=== PATIENT | male | born 1960 | race Caucasian/White ===

== ENCOUNTER → 2017-09-01 08:28 | Outpatient (CLI) | payer OTHER, SELFPAY ==
[2017-09-01 12:59] LABS: Absolute Lymphocyte Count 1.58 X10^3/ul (0.83-4.51); Absolute Neutrophil Count 3.7 X10^3/uL (2.0-7.7); Basophil# 0.04 X10^3/uL; Basophil% 0.7 % (0-1); Eosinophil# 0.25 X10^3/uL; Eosinophils% 4.1 % (0-5); Hematocrit 47.9 % (40-54); Hemoglobin 16.6 g/dl (13.0-16.5); Lymphocyte # 1.58 X10^3/ul (4.0); Lymphocyte % 25.8 % (19-41); Mean Corp Hgb Conc 34.7 g/gl (32-36); Mean Corpuscular Hgb 30.5 pg (27.0-32.0); Mean Corpuscular Volume 88.1 fL (80-94); Mean Platelet Vol. 9.7 fl (6.2-12.0); Monocyte# 0.58 X10^3/uL; Monocyte% 9.5 % (0-10); Neutrophil # 3.65 X10^3/uL (2.7-7.7); Neutrophil % 59.4 % (47-70); Platelet Count 207 K/mm3 (150-450); RBC Distribution Width CV 13.1 % (11.6-14.6); RBC Distribution Width SD 42.4 fl (35.1-43.9); Red Blood Count 5.44 M/mm3 (4.6-6.2); White Blood Count 6.1 K/mm3 (4.4-11.0)
[2017-09-01 13:05] LABS: POSITIVE COUNT NO; POSITIVE DIFFERENTIAL NO; POSITIVE MORPHOLOGY NO
[2017-09-01 13:15] LABS: Anion Gap 8 (5-15); BUN 28 mg/dL (7-18); BUN/Creat Ratio 23.3 RATIO (10-20); Calcium,Total 9.1 mg/dL (8.5-10.1); Chloride 107 mmol/L (98-107); EST Glomerular Filtration Rate 66 mL/min (>60); Est Glom Filt Rate - Afr Amer 80 mL/min (>60); Glucose 106 mg/dL (74-106); Potassium 4.2 mmol/L (3.5-5.1); Sodium Level 144 mmol/L (136-145); Thyroid Stim Hormone (TSH) 1.89 uIU/mL (0.358-3.74)
== END ==
PROVIDERS: Visit Provider Family Medicine
DX: I10 Essential (primary) hypertension (principal); R73.01 Impaired fasting glucose
CPT/HCPCS: 36415; 80048; 84443; 85025

== ENCOUNTER 2018-05-16 12:20 | Observation (INO) | payer OTHER, SELFPAY ==
[2018-05-16] VITALS (10 sets, daily range): BP systolic 146–193; BP diastolic 90–113; PULSE 64–76; RESP 13–20; TEMP 36.6–37.3; O2SAT 95–98; BMI 35.6; BMI 35.2
--- NOTE | 2018-05-16 12:42 | EKG12_ITS ---
Test Reason : HTN Blood Pressure : / mmHG Vent. Rate : 067 BPM Atrial Rate : 067 BPM P-R Int : 176 ms QRS Dur : 092 ms QT Int : 412 ms P-R-T Axes : 042 014 008 degrees QTc Int : 435 ms Normal sinus rhythm Possible Left atrial enlargement Borderline ECG Confirmed by DIONNE CHAN, KELLY ([id number]), supervising film or videotape editor NA JOHNSON ([id number]) on 05/21/2018 4:27:14 PM Referred By: CAROLE Confirmed By:KELLY TRUONG MD
--- NOTE | 2018-05-16 12:42 | RAD_ITS ---
STUDY: X-RAY CHEST REASON FOR EXAM: Male, 58 years old. Hypertension. TECHNIQUE: Single AP portable view of the chest. COMPARISON: Comparison is made with prior study dated October 14, 2012. FINDINGS: EKG electrodes are seen. The lungs are clear and expanded. There is no demonstrated pleural abnormality. There is borderline cardiomegaly. Normal mediastinum and loraine. Normal visualized pulmonary arteries. Normal visualized aortic arch and descending thoracic aorta. Normal visualized thoracic spine. Normal visualized ribs, clavicles, and shoulders. There is no demonstrated abnormality of the visualized soft tissue structures of the upper abdomen. RAD/Chest 1 View (Portable) IMPRESSION: Borderline cardiomegaly. Electronically Signed: Dmitriy Perkins, at 13:09 EDT , Service support ,
--- NOTE | 2018-05-16 12:43 | ED.VIS.GEN ---
History of Present Illness Chief Complaint: Hypertension Detail of Chief Complaint: Exertional dyspnea and chest tightness Informant: Patient Onset: Weeks - Elevated blood pressure reading to Dr. Cordoba's office 2 weeks ago and exertional dyspnea and chest discomfort times 6 weeks Context: Onset with activity Timing: Intermittent Quality: Central chest tightness Current Severity: Presently no symptoms Maximum Severity: Moderate Worsened by: Walking up 1-2 flights of steps Relieved by: Rest for 1 minute Associated Symptoms: None Narrative: Patient is a 4-year-old gentleman with history of hypertension for many years who presents because of elevated blood pressure. During questioning he admits to shortness of breath and tightness in his chest going up greater than 1 flight of steps at work. He also developed shortness of breath occasionally at home going up 1 flight of steps. Presently he is asymptomatic. He denies any neurologic, ocular, auditory symptoms. He denies trouble with speech or swallowing. He denied problems with balance. He is scheduled for cataract surgery tomorrow by Dr. Henriquez Prior similar symptoms: No Recent Illness/Hospitalization: No - Past Medical History (1) History of hypertension Status: Acute Past Medical History - Allergies and Home Meds Allergies/Adverse Reactions: Allergies No Known Allergies Allergy (Verified 05/16/18 12:21) Primary Care Physician: Ricardo West MD [Primary Care Provider] - Prior records reviewed: Yes Surgical History: noncontributory Lives: Spouse/ Significant Other Smoking Status: Never smoker Alcohol: None Review of Systems General: Denies: Chills, Fever, Sweats Eyes: Denies: Visual changes - bilaterally, Blurred Vision - bilaterally, Diplopia ENT: Denies: Rhinorrhea, Sore throat Cardiovascular: Reports: Chest pain Respiratory: Reports: Dyspnea, Dyspnea on exertion Gastrointestinal: Denies: Abdominal pain, Nausea, Vomiting, Diarrhea, Melena, Hematochezia Genitourinary: Denies: Dysuria, Hematuria, Frequency Musculoskeletal: Denies: Myalgias, Arthralgias, Neck pain, Back pain, Swelling, Extremity Pain Skin: Denies: Rash, Wounds Neurological: Denies: Headache, Weakness, Parasthesia, Numbness Hematologic: Denies: Easy bruising, Easy bleeding Allergy: Denies: Uticaria Physical Exam Vital Signs/Narrative: Vital Signs Temp Pulse Resp BP Pulse Ox 05/16/18 12:42 73 20 H 192/103 H 97 05/16/18 12:21 99.2 F H 76 14 193/113 H 98 General: Well nourished, Well developed, No Acute Distress Head: Normocephalic, Atraumatic Eyes: Perrl, EOMI ENT: Moist mucous membranes, No rhinorrhea Neck: Supple, Nontender Cardiovascular: Regular rate, Regular rhythm, No murmurs, Normal S1, Normal S2 Respiratory: No distress, CTA bilaterally, Chest nontender Abdomen: Soft, Nontender, Nondistended, Normal bowel sounds Back: Nontender, Normal Inspection. Negative for: CVA tenderness Extremities: Nontender, No edema Skin: Normal color, No rash Neurological: Alert, Oriented x3, Cranial nerves II-XII grossly intact, Normal Strength, Normal Sensation, Normal DTR, Normal Gait Psychological: Normal affect, Normal Mood Diagnostic/Tx/Re-eval Impressions Chest X-Ray 05/16/18 12:42 IMPRESSION: Borderline cardiomegaly. Electronically Signed: Dmitriy Maddie, at 13:09 EDT , Service support , 05/16/18 12:42 Chest 1 View (Portable) [RAD] Stat Laboratory Results 05/16/18 05/16/18 13:00 13:00 WBC 5.7 RBC 5.77 Hgb 17.4 H Hct 50.0 MCV 86.7 MCH 30.2 MCHC 34.8 RDW 12.9 RDW Differential 40.9 Plt Count 184 MPV 9.3 Immature Gran % (Auto) 0.200 Neut % (Auto) 66.4 Lymph % (Auto) 23.4 [place] % (Auto) 7.2 Eos % (Auto) 2.3 Baso % (Auto) 0.5 Absolute Neuts (auto) 3.8 Absolute Lymphs (auto) 1.34 Total Counted Not Reportable Sodium 139 Potassium 3.6 Chloride 105 Carbon Dioxide 28.0 Anion Gap 6 BUN 19 H Creatinine 1.15 Estim Creat Clear Calc 79.42 Est GFR (MDRD) Af Amer 83 Est GFR (MDRD) Non-Af 69 BUN/Creatinine Ratio 16.5 Glucose 93 Calcium 9.2 Troponin I < 0.015 - EKG Initial EKG Interpretation: Sinus Rhythm - Ventricular rate is 67. MI interval, is normal. QRS duration is 92 ms. QT interval and axis are normal. There are no ischemic changes noted., No Acute Injury Pattern - Medical Decision Making Patient's blood pressure is markedly elevated. He reports elevated blood pressure readings when he goes to the doctor's office. He brought in a piece paper with multiple blood pressure readings which are at best mildly elevated. With history of dyspnea on exertion and tightness with exertion alleviated with rest cardiac workup was undertaken. Patient did receive aspirin. Dr. Cordoba his supervisor fryer farm was contacted to inform him of patient's presentation since he is scheduled for surgery tomorrow. After completion of workup will contact Dr. Day for he was on for cardiology because of concern for exertional angina. Blood work is unremarkable including troponin. With history of exertional angina and shortness of breath that is alleviated with 1-2 minutes of rest continuing education director was paged, Dr. Jayesh Sinclair and hospitalist for admission and to determine if the catheterization is the appropriate test versus stress test. ED Disposition - Plan for ED Patient: Disposition: Acute Care [facility] Diagnosis: Exertional chest pain, Exertional dyspnea, Hypertension Referrals: Ricardo West MD [Primary Care Provider] -
--- NOTE | 2018-05-16 12:47 | ED.DCSUM_ITS ---
History of Present Illness Chief Complaint: Hypertension Detail of Chief Complaint: Exertional dyspnea and chest tightness Informant: Patient Onset: Weeks - Elevated blood pressure reading to Dr. Cordoba's office 2 weeks ago and exertional dyspnea and chest discomfort times 6 weeks Context: Onset with activity Timing: Intermittent Quality: Central chest tightness Current Severity: Presently no symptoms Maximum Severity: Moderate Worsened by: Walking up 1-2 flights of steps Relieved by: Rest for 1 minute Associated Symptoms: None Narrative: Patient is a 4-year-old gentleman with history of hypertension for many years who presents because of elevated blood pressure. During questioning he admits to shortness of breath and tightness in his chest going up greater than 1 flight of steps at work. He also developed shortness of breath occasionally at home going up 1 flight of steps. Presently he is asymptomatic. He denies any neurologic, ocular, auditory symptoms. He denies trouble with speech or swallowing. He denied problems with balance. He is scheduled for cataract surgery tomorrow by Dr. Henriquez Prior similar symptoms: No Recent Illness/Hospitalization: No - Past Medical History (1) History of hypertension Status: Acute Past Medical History - Allergies and Home Meds Allergies/Adverse Reactions: Allergies No Known Allergies Allergy (Verified 05/16/18 12:21) Primary Care Physician: Ricardo West MD [Primary Care Provider] - Prior records reviewed: Yes Surgical History: noncontributory Lives: Spouse/ Significant Other Smoking Status: Never smoker Alcohol: None Review of Systems General: Denies: Chills, Fever, Sweats Eyes: Denies: Visual changes - bilaterally, Blurred Vision - bilaterally, Diplopia ENT: Denies: Rhinorrhea, Sore throat Cardiovascular: Reports: Chest pain Respiratory: Reports: Dyspnea, Dyspnea on exertion Gastrointestinal: Denies: Abdominal pain, Nausea, Vomiting, Diarrhea, Melena, Hematochezia Genitourinary: Denies: Dysuria, Hematuria, Frequency Musculoskeletal: Denies: Myalgias, Arthralgias, Neck pain, Back pain, Swelling, Extremity Pain Skin: Denies: Rash, Wounds Neurological: Denies: Headache, Weakness, Parasthesia, Numbness Hematologic: Denies: Easy bruising, Easy bleeding Allergy: Denies: Uticaria Physical Exam Vital Signs/Narrative: Vital Signs Temp Pulse Resp BP Pulse Ox 05/16/18 12:42 73 20 H 192/103 H 97 05/16/18 12:21 99.2 F H 76 14 193/113 H 98 General: Well nourished, Well developed, No Acute Distress Head: Normocephalic, Atraumatic Eyes: Perrl, EOMI ENT: Moist mucous membranes, No rhinorrhea Neck: Supple, Nontender Cardiovascular: Regular rate, Regular rhythm, No murmurs, Normal S1, Normal S2 Respiratory: No distress, CTA bilaterally, Chest nontender Abdomen: Soft, Nontender, Nondistended, Normal bowel sounds Back: Nontender, Normal Inspection. Negative for: CVA tenderness Extremities: Nontender, No edema Skin: Normal color, No rash Neurological: Alert, Oriented x3, Cranial nerves II-XII grossly intact, Normal Strength, Normal Sensation, Normal DTR, Normal Gait Psychological: Normal affect, Normal Mood Diagnostic/Tx/Re-eval Impressions Chest X-Ray 05/16/18 12:42 IMPRESSION: Borderline cardiomegaly. Electronically Signed: Dmitriy Maddie, at 13:09 EDT , Service support , 05/16/18 12:42 Chest 1 View (Portable) [RAD] Stat Laboratory Results 05/16/18 05/16/18 13:00 13:00 WBC 5.7 RBC 5.77 Hgb 17.4 H Hct 50.0 MCV 86.7 MCH 30.2 MCHC 34.8 RDW 12.9 RDW Differential 40.9 Plt Count 184 MPV 9.3 Immature Gran % (Auto) 0.200 Neut % (Auto) 66.4 Lymph % (Auto) 23.4 [place] % (Auto) 7.2 Eos % (Auto) 2.3 Baso % (Auto) 0.5 Absolute Neuts (auto) 3.8 Absolute Lymphs (auto) 1.34 Total Counted Not Reportable Sodium 139 Potassium 3.6 Chloride 105 Carbon Dioxide 28.0 Anion Gap 6 BUN 19 H Creatinine 1.15 Estim Creat Clear Calc 79.42 Est GFR (MDRD) Af Amer 83 Est GFR (MDRD) Non-Af 69 BUN/Creatinine Ratio 16.5 Glucose 93 Calcium 9.2 Troponin I < 0.015 - EKG Initial EKG Interpretation: Sinus Rhythm - Ventricular rate is 67. NH interval, is normal. QRS duration is 92 ms. QT interval and axis are normal. There are no ischemic changes noted., No Acute Injury Pattern - Medical Decision Making Patient's blood pressure is markedly elevated. He reports elevated blood pressure readings when he goes to the doctor's office. He brought in a piece paper with multiple blood pressure readings which are at best mildly elevated. With history of dyspnea on exertion and tightness with exertion alleviated with rest cardiac workup was undertaken. Patient did receive aspirin. Dr. Cordoba his wire welder was contacted to inform him of patient's presentation since he is scheduled for surgery tomorrow. After completion of workup will contact Dr. Day for he was on for cardiology because of concern for exertional angina. Blood work is unremarkable including troponin. With history of exertional angina and shortness of breath that is alleviated with 1-2 minutes of rest freight car builder was paged, Dr. Jayesh Sinclair and hospitalist for admission and to determine if the catheterization is the appropriate test versus stress test. ED Disposition - Plan for ED Patient: Disposition: Acute Care Hospital [facility] Diagnosis: Exertional chest pain, Exertional dyspnea, Hypertension Referrals: Ricardo West MD [Primary Care Provider] -
[2018-05-16] MEDS: Aspirin 81 MG TAB.CHEW 324 MG PO (12:53)
[2018-05-16 13:24] LABS: Absolute Lymphocyte Count 1.34 X10^3/ul (0.83-4.51); Absolute Neutrophil Count 3.8 X10^3/uL (2.0-7.7); Basophil# 0.03 X10^3/uL; Basophil% 0.5 % (0-1); Eosinophil# 0.13 X10^3/uL; Eosinophils% 2.3 % (0-5); Hemoglobin 17.4 g/dl (13.0-16.5); Lymphocyte # 1.34 X10^3/ul (4.0); Lymphocyte % 23.4 % (19-41); Mean Corp Hgb Conc 34.8 g/gl (32-36); Mean Corpuscular Hgb 30.2 pg (27.0-32.0); Mean Corpuscular Volume 86.7 fL (80-94); Mean Platelet Vol. 9.3 fl (6.2-12.0); Monocyte# 0.41 X10^3/uL; Monocyte% 7.2 % (0-10); Neutrophil # 3.81 X10^3/uL (2.7-7.7); Neutrophil % 66.4 % (47-70); POSITIVE COUNT NO; POSITIVE DIFFERENTIAL NO; POSITIVE MORPHOLOGY NO; Platelet Count 184 K/mm3 (150-450); RBC Distribution Width CV 12.9 % (11.6-14.6); RBC Distribution Width SD 40.9 fl (35.1-43.9); Red Blood Count 5.77 M/mm3 (4.6-6.2); White Blood Count 5.7 K/mm3 (4.4-11.0)
[2018-05-16 13:30] LABS: Anion Gap 6 (5-15); BUN 19 mg/dL (7-18); BUN/Creat Ratio 16.5 RATIO (10-20); Calcium,Total 9.2 mg/dL (8.5-10.1); Chloride 105 mmol/L (98-107); Creatinine, Serum 1.15 mg/dL (0.70-1.30); EST Glomerular Filtration Rate 69 mL/min (>60); Est Glom Filt Rate - Afr Amer 83 mL/min (>60); Estimated Creatinine Clearance 79.42 ml/min; Glucose 93 mg/dL (74-106); Potassium 3.6 mmol/L (3.5-5.1); Sodium Level 139 mmol/L (136-145)
--- NOTE | 2018-05-16 14:53 | EKG12_ITS ---
Test Reason : Blood Pressure : / mmHG Vent. Rate : 061 BPM Atrial Rate : 061 BPM P-R Int : 180 ms QRS Dur : 096 ms QT Int : 432 ms P-R-T Axes : 035 017 008 degrees QTc Int : 434 ms Normal sinus rhythm Normal ECG When compared with ECG of 30-OCT-2012 13:51, No significant change was found Confirmed by DIONNE CHAN, KELLY ([id number]), dictionary editor NA JOHNSON ([id number]) on 05/21/2018 5:35:51 PM Referred By: CHUNG Confirmed By:KELLY TRUONG MD
--- NOTE | 2018-05-16 16:04 | HP.PCM_ITS ---
Problem List (1) Chest pain Status: Acute Qualifiers: Chest pain type: precordial pain Qualified Code(s): R07.2 - Precordial pain History of Present Illness Date of Admission: 05/16/18 Chief Complaint: chest tightness The patient is a 58 year old M who was seen in the ER at [facility] with complaints of intermittent chest tightness over the last 2-3 weeks. Discomfort is not related to activity and lasts for only a matter of minutes and goes away. Does not radiate to neck, back, or arms. he complains of some shortness of breath at times with the chest tightness. Work up in the ER included negative troponin and a chest x-ray which was negative for acute pathology. EKG shows no evidence of ischemic changes Patient will be placed into observation status for chest pain, enzymes will be cycled, and patient will have an echo stress performed if enzymes are negative. Blood pressure will be monitored. Past Medical History Past Medical History (Chronic Problems): Chronic Problems Hypertension (Chronic) Allergies No Known Allergies Allergy (Verified 05/16/18 12:21) Home Medications: Ambulatory Orders Medication Instructions Recorded Hydrochlorothiazide [Hctz] 25 mg PO DAILY 05/16/18 Surgical History: total knee arthroplasty, tonsillectomy, - - shoulder replacement Psychiatric History: No pertinent psych hx Lives: Spouse/ Significant Other Smoking Status: Never smoker Tobacco Use: Non-smoker Alcohol: None Drugs: None - *Family History Maternal History Items: Hypertension Paternal History Items: Hypertension Review of Systems Constitutional: Denies: Anorexia, Chills, Fever, Night Sweats, Malaise, Weakness, Weight Change, Fatigue Eyes: Denies: Blurred vision, Cataracts, Conjunctivae Inflammation, Double vision, Drainage HEENT: Denies: Difficulty Swallowing, Dysphasia, Ear Pain, Eye Pain, Hearing Changes, Nasal bleeding, Nasal Congestion Cardiovascular: Reports: Chest Pain, Chest Tightness. Denies: Claudication, Chest Pressure, Edema, Heaviness, Orthopnea, Palpitations Respiratory: Reports: Shortness of Breath, Shortness of breath at rest. Denies: Cough, Hemoptysis, Pleuritic Pain, Shortness of breath upon exertion, Sputum production, Wheezing Gastrointestinal: Denies: Abdominal Pain, Constipation, Diarrhea, Hematemesis, Hematochezia, Nausea, Melena, Vomiting Genitourinary: Denies: Dysuria, Frequency, Hematuria, Hesitancy, Nocturia, Retention, Urgency Musculoskeletal: Denies: Back Pain, Foot Pain, Hand Pain, Joint Pain, Joint stiffness, Joint swelling, Joint Tenderness, Leg Pain Skin: Denies: Dryness, Jaundice, Pruritis, Rash Neurological: Denies: Blurred vision, Double vision, Change in Speech, Slurred speech, Difficulty swallowing, Focal weakness, Headaches, Incoordination, Numbness, Tingling Psychiatric: Denies: Anxiety, Depression, Homicidal Ideations, Suicidal Ideations Endocrine: Denies: Change in Body Habitus, Heat/ Cold Intolerance, Polydipsia, Polyuria Hematologic/ Lymphatic: Denies: Adenopathy, Anemia, Easy Bruising, Easy Bleeding, Petechiae, Purpura VTE Information - Inpt Only VTE Present on Admission: No VTE Mechan Device Prophylaxis: None VTE Pharm Prophylaxis ordered?: No Reason prophylaxis not ordered:: Treatment Not Indicated Patient Problems: Active and Suspected Problems Exertional chest pain (Acute) Exertional dyspnea (Acute) Chest pain (Acute) - Physical Exam General: Alert, Oriented x3, Cooperative HEENT: Atraumatic, PERRLA, EOMI, Normocephalic Oral: Moist Mucosa Neck: Supple, No JVD, Negative Carotid Bruits, No Nuchal Rigidity, Trachea Midline, Thyroid Normal Size and Texture Lungs: Clear to auscultation, Normal air movement, No rhonchi, No wheeze, No rales Cardiovascular: Regular rate, Regular Rhythm, Normal S1, Normal S2, No murmurs, No Ectopic Activity, PMI Normal, No rub noted, No Gallop Abdomen: Bowel Sounds Present, Soft, Non Tender, Non-Distended Extremities: No clubbing, No cyanosis, No edema, Capillary Refill Less than 3 Seconds Skin: No rashes, No breakdown Musculoskeletal: No Tenderness to Palpation of Joints or Extremities Neurological: Cranial nerves II-XII grossly intact, Neuro grossly intact, Sensory exam intact to light touch and pain, Coordination normal Psych/Mental Status: Normal Affect, Appropriate, Alert and oriented to time, place, person, mood and affect Vital Signs Temp Pulse Resp BP Pulse Ox 98.6 F 65 16 146/90 H 98 05/16/18 15:10 05/16/18 15:10 05/16/18 15:10 05/16/18 15:10 05/16/18 15:10 Oxygen Delivery Method Room Air Weight: 124.5 kg Body Mass Index (BMI) 35.2 Laboratory Tests Past 24 Hrs 05/16/18 05/16/18 13:00 13:00 WBC 5.7 RBC 5.77 Hgb 17.4 H Hct 50.0 MCV 86.7 MCH 30.2 MCHC 34.8 RDW 12.9 RDW Differential 40.9 Plt Count 184 MPV 9.3 Immature Gran % (Auto) 0.200 Neut % (Auto) 66.4 Lymph % (Auto) 23.4 [place] % (Auto) 7.2 Eos % (Auto) 2.3 Baso % (Auto) 0.5 Absolute Neuts (auto) 3.8 Absolute Lymphs (auto) 1.34 Total Counted Not Reportable Sodium 139 Potassium 3.6 Chloride 105 Carbon Dioxide 28.0 Anion Gap 6 BUN 19 H Creatinine 1.15 Estim Creat Clear Calc 79.42 Est GFR (MDRD) Af Amer 83 Est GFR (MDRD) Non-Af 69 BUN/Creatinine Ratio 16.5 Glucose 93 Calcium 9.2 Troponin I < 0.015 Assessment/Plan All Active Problems History of hypertension (Acute) Exertional chest pain (Acute) Exertional dyspnea (Acute) Chest pain (Acute) #1 chest pain-etiology unknown-patient will be placed into observational status, enzymes will be cycled, if enzymes remain negative-patient will have echo stress performed tomorrow. Patient's only risk factor for heart disease includes hypertension and male sex #2 hypertension-patient states that his blood pressure is lower at home than when he goes to a physician's office, he showed me blood pressure readings from his home and he states that he took his blood pressure in the emergency room here with his home cuff and it correlated with the emergency room reading. For now, I will not increase the patient's blood pressure medication unless it remains elevated while he is in the hospital here. Code Visit OBSV E&M: 23008 Initial observation care L3
[2018-05-16] MEDS: Pantoprazole Sodium 20 MG Tablet PO (22:59)
[2018-05-16] MEDS: Lisinopril 5 MG Tablet PO (23:00)
[2018-05-17 02:59] VITALS: PULSE 53
[2018-05-17 03:00] VITALS: BP 144/94; PULSE 56; RESP 18; TEMP 36.5; O2SAT 97
[2018-05-17 05:36] LABS: Absolute Lymphocyte Count 1.21 X10^3/ul (0.83-4.51); Absolute Neutrophil Count 3.4 X10^3/uL (2.0-7.7); Basophil# 0.02 X10^3/uL; Basophil% 0.4 % (0-1); Eosinophil# 0.21 X10^3/uL; Eosinophils% 3.8 % (0-5); Hematocrit 48.3 % (40-54); Hemoglobin 16.8 g/dl (13.0-16.5); Lymphocyte # 1.21 X10^3/ul (4.0); Lymphocyte % 22.2 % (19-41); Mean Corp Hgb Conc 34.8 g/gl (32-36); Mean Corpuscular Hgb 29.8 pg (27.0-32.0); Mean Corpuscular Volume 85.6 fL (80-94); Mean Platelet Vol. 9.3 fl (6.2-12.0); Monocyte# 0.63 X10^3/uL; Monocyte% 11.5 % (0-10); Neutrophil # 3.38 X10^3/uL (2.7-7.7); Neutrophil % 61.9 % (47-70); Platelet Count 202 K/mm3 (150-450); RBC Distribution Width SD 40.6 fl (35.1-43.9); Red Blood Count 5.64 M/mm3 (4.6-6.2); White Blood Count 5.5 K/mm3 (4.4-11.0)
[2018-05-17 05:38] LABS: POSITIVE COUNT NO; POSITIVE DIFFERENTIAL NO; POSITIVE MORPHOLOGY NO
[2018-05-17 05:46] LABS: Anion Gap 8 (5-15); BUN 18 mg/dL (7-18); BUN/Creat Ratio 16.7 RATIO (10-20); Calcium,Total 8.7 mg/dL (8.5-10.1); Chloride 105 mmol/L (98-107); Creatinine, Serum 1.08 mg/dL (0.70-1.30); EST Glomerular Filtration Rate 74 mL/min (>60); Est Glom Filt Rate - Afr Amer 90 mL/min (>60); Estimated Creatinine Clearance 84.57 ml/min; Glucose 115 mg/dL (74-106); Potassium 3.8 mmol/L (3.5-5.1); Sodium Level 140 mmol/L (136-145)
[2018-05-17 05:49] LABS: International Normalized Ratio 1.1; Prothrombin Time (Protime)PT. 13.8 SECONDS (11.7-14.9)
[2018-05-17 05:50] LABS: Partial Thromboplast Time 33.1 Seconds (24.1-36.2)
--- NOTE | 2018-05-17 05:55 | EKG12_ITS ---
Test Reason : AM EKG Blood Pressure : / mmHG Vent. Rate : 062 BPM Atrial Rate : 062 BPM P-R Int : 168 ms QRS Dur : 092 ms QT Int : 430 ms P-R-T Axes : 053 023 023 degrees QTc Int : 436 ms Normal sinus rhythm Normal ECG When compared with ECG of 16-MAY-2018 14:53, MANUAL COMPARISON REQUIRED, DATA IS UNCONFIRMED Confirmed by DIONNE CHAN, KELLY ([id number]), editor city NA JOHNSON ([id number]) on 05/21/2018 5:14:10 PM Referred By: YENNY Confirmed By:KELLY TRUONG MD
[2018-05-17 05:56] VITALS: BP 141/92; PULSE 61; RESP 18; TEMP 36.5; O2SAT 96
[2018-05-17 07:06] VITALS: PULSE 62
--- NOTE | 2018-05-17 08:00 | STEWCON_ITS ---
Reason For Study: CHEST PAIN Stress Results Protocol: Bernardo Protocol WITH DEFINITY Maximum Predicted HR: 160 bpm Target HR: 136 bpm % Maximum Predicted HR: 88 % DurationHeart Rate Stage (mm:ss) (bpm) BP Comment BASELINE 60 152/98 2CC DEFINITY STAGE 1 3:00 110 222/110 STAGE 2 3:00 133 228/1002 CC DEFINITY STAGE 3 0:30 141 / RECOVERY 90 150/1001CC DEFINITY Stress Duration: 6:30 mm:ss Maximum Stress HR: 141 bpm METS: 8 Baseline Echocardiogram Findings Stress Echo Wall motion Data Resting WM Intermediate WM Stress WM Resting Wall Motion Wall Motion Stress All segments Normal. All segments Hyperkinetic. Ejection Fraction 65 %. Ejection Fraction 75 %. Stress Results Heart rate response: appropriate Blood pressure response: resting hypertension - exaggerated response Arrhythmias: none Functional capacity: average Stopped secondary to: dyspnea. EKG Data The baseline ECG displays normal sinus rhythm. Peak exercise ECG: No obvious ECG Changes. Symptoms with Stress No c/o of chest discomfort during exercise or recovery. Interpretation Summary Negative (adequate) Stress Echocardiogram The study was technically difficult. Contrast injection was performed. Ordering Physician: Vito Dominguez Referring Physician: Vito Dominguez DO Performed By: Nate Sierra RCS
[2018-05-17 08:59] VITALS: BP 155/99; PULSE 70; RESP 18; TEMP 36.6; O2SAT 97
[2018-05-17] MEDS: Pantoprazole Sodium 20 MG Tablet PO (09:03)
[2018-05-17] MEDS: hydroCHLOROthiazide 25 MG Tablet PO (09:03)
--- NOTE | 2018-05-17 10:44 | DCINST_ITS ---
- Discharge Diagnoses Current Active Problems: Current Active and Chronic Problems Exertional chest pain (Acute) Exertional dyspnea (Acute) Hypertension (Chronic) Chest pain (Acute) You will use the following diet at home:: No restrictions Your food should be the consistency of: Regular Your liquids should be the consistency of: Regular/Thin Discharge Activity: Return to Normal Activity Weight Bearing Status: Full weight bearing Allergies/Adverse Reactions: Allergies No Known Allergies Allergy (Verified 05/16/18 12:21) Medications to take at Discharge Hydrochlorothiazide [Hctz] 25 mg PO DAILY 05/16/18 Metoprolol Tartrate 25 mg PO BID #60 tablet 05/17/18 The following prescriptions were given: Metoprolol Tartrate 25 mg PO BID #60 tablet Primary Care Physician: Ricardo West MD [Primary Care Provider] - Please follow up with your Primary Care Physician in: next week Test Results: Test results from this visit will be discussed in further detail at your follow- up appointment, if applicable.
--- NOTE | 2018-05-17 11:53 | PCM.DC.SUM ---
Discharge Date and Diagnosis Date of Admission: 05/16/18 Date of Discharge: 05/17/18 - Primary Discharge Diagnosis Active and Suspected Problems 1. Noncardiac chest pain 2. Hypertension 3. GERD - Secondary Discharge Diagnosis Chronic Problems Hypertension (Chronic) Hospital Course and Treatment Imaging Results: Diagnostic Data Chest X-Ray 05/16/18 12:42 IMPRESSION: Borderline cardiomegaly. Electronically Signed: Dmitriy Perkins, at 13:09 EDT , Service support , Operations: None Procedures: - - Stress echo. Summary of Care Provided: The patient is a 58 year old M admitted 05/16/2018 due to chest tightness. 1. Noncardiac chest pain, ACS ruled out-chest x-ray on admission without acute process. EKG with no ST-T changes. Troponin negative. Patient underwent stress echo which was negative for ischemia. Patient reports significant anxiety over the past 1-2 weeks due to planned eye surgery which was scheduled for today. He feels this may have been contributing to his presenting symptoms. Follow-up with primary care physician in 1 week. 2. Hypertension, elevated on admission-patient reports blood pressure is higher at the doctor's office than when he is at home. He records blood pressure findings at home and readings are typically 120-130 systolically. He will continue home HCTZ regimen. He was additionally started on metoprolol 25 mg twice daily. 3. GERD-patient reports indigestion/reflux following meals. Initiated on PPI. Patient seen and examined prior to discharge. Physical assessment as noted below. Patient is stable for discharge with follow up recommendations as noted above. This patient was seen by SELMA Guzmán under the supervision of Dr. Dominguez. - Physical Exam General: Alert, Oriented x3, Cooperative HEENT: Atraumatic, PERRLA, EOMI, Normocephalic Neck: Supple, No JVD, Negative Carotid Bruits Lungs: Clear to auscultation, Normal air movement Cardiovascular: Regular rate, Regular Rhythm, Normal S1, Normal S2, No murmurs Abdomen: Bowel Sounds Present, Soft, Non Tender, Non-Distended, Obese Extremities: No clubbing, No cyanosis, No edema, Capillary Refill Less than 3 Seconds Skin: No rashes, No breakdown Musculoskeletal: No Tenderness to Palpation of Joints or Extremities Neurological: Cranial nerves II-XII grossly intact, Neuro grossly intact Psych/Mental Status: Normal Affect, Appropriate Vital Signs Temp Pulse Resp BP Pulse Ox 98 F 70 18 155/99 H 97 05/17/18 08:59 05/17/18 08:59 05/17/18 08:59 05/17/18 08:59 05/17/18 08:59 Oxygen Delivery Method Room Air Weight: 274 lb 7.608 oz Body Mass Index (BMI) 35.2 Intake and Output for Last 24 Hours 05/15/18 05/16/18 05/17/18 23:59 23:59 23:59 Intake Total 120 / 120 Balance 120 / 120 Laboratory Tests Past 24 Hrs 05/16/18 05/16/18 05/16/18 13:00 13:00 16:11 WBC 5.7 RBC 5.77 Hgb 17.4 H Hct 50.0 MCV 86.7 MCH 30.2 MCHC 34.8 RDW 12.9 RDW Differential 40.9 Plt Count 184 MPV 9.3 Immature Gran % (Auto) 0.200 Neut % (Auto) 66.4 Lymph % (Auto) 23.4 [place] % (Auto) 7.2 Eos % (Auto) 2.3 Baso % (Auto) 0.5 Absolute Neuts (auto) 3.8 Absolute Lymphs (auto) 1.34 Total Counted Not Reportable PT INR APTT Sodium 139 Potassium 3.6 Chloride 105 Carbon Dioxide 28.0 Anion Gap 6 BUN 19 H Creatinine 1.15 Estim Creat Clear Calc 79.42 Est GFR (MDRD) Af Amer 83 Est GFR (MDRD) Non-Af 69 BUN/Creatinine Ratio 16.5 Glucose 93 Calcium 9.2 Troponin I < 0.015 < 0.015 05/16/18 05/17/18 05/17/18 19:11 05:20 05:20 WBC 5.5 RBC 5.64 Hgb 16.8 H Hct 48.3 MCV 85.6 MCH 29.8 MCHC 34.8 RDW 13.0 RDW Differential 40.6 Plt Count 202 MPV 9.3 Immature Gran % (Auto) 0.200 Neut % (Auto) 61.9 Lymph % (Auto) 22.2 [place] % (Auto) 11.5 H Eos % (Auto) 3.8 Baso % (Auto) 0.4 Absolute Neuts (auto) 3.4 Absolute Lymphs (auto) 1.21 Total Counted Not Reportable PT 13.8 INR 1.1 APTT 33.1 Sodium Potassium Chloride Carbon Dioxide Anion Gap BUN Creatinine Estim Creat Clear Calc Est GFR (MDRD) Af Amer Est GFR (MDRD) Non-Af BUN/Creatinine Ratio Glucose Calcium Troponin I < 0.015 05/17/18 05:20 WBC RBC Hgb Hct MCV MCH MCHC RDW RDW Differential Plt Count MPV Immature Gran % (Auto) Neut % (Auto) Lymph % (Auto) [place] % (Auto) Eos % (Auto) Baso % (Auto) Absolute Neuts (auto) Absolute Lymphs (auto) Total Counted PT INR APTT Sodium 140 Potassium 3.8 Chloride 105 Carbon Dioxide 27.0 Anion Gap 8 BUN 18 Creatinine 1.08 Estim Creat Clear Calc 84.57 Est GFR (MDRD) Af Amer 90 Est GFR (MDRD) Non-Af 74 BUN/Creatinine Ratio 16.7 Glucose 115 H Calcium 8.7 Troponin I Discharge Diet: Low fat/ Low Cholesterol Discharge Activity: Return to Normal Activity Weight Bearing Status: Full weight bearing Home Medications: Medications to take at Discharge Hydrochlorothiazide [Hctz] 25 mg PO DAILY 05/16/18 Metoprolol Tartrate 25 mg PO BID #60 tablet 05/17/18 Following Prescrptions Were Given to Patient: Metoprolol Tartrate 25 mg PO BID #60 tablet Primary Care Physician: Ricardo West MD [Primary Care Provider] - Please follow up with your Primary Care Physician in: next week Disposition: Home Minutes spent on discharge:: 35 Patient Condition:: Stable Medical Necessity - Tobacco Use Smoking Status: Never smoker Tobacco Use: Non-smoker Meaningful Use Info Meaningful Use Diagnoses (Choose all that apply): None applicable
== END 2018-05-17 10:44 | disposition home or self-care (01) ==
LOC: ED 13:38 → PCU 14:27
PROVIDERS: Admitting Provider Internal Medicine; Emergency Provider Emergency Medicine; Family Provider Family Medicine; PCP Family Medicine; Visit Provider Internal Medicine
DX: E07.89 Other specified disorders of thyroid (principal); R06.09 Other forms of dyspnea; I10 Essential (primary) hypertension; Z79.899 Other long term (current) drug therapy; K21.9 Gastro-esophageal reflux disease without esophagitis
CPT/HCPCS: 36415; 71045; 80048; 84484; 85025; 85610; 85730; 93005; 93017; 93350; 99218; 99284; Q9957; A4216; C8928; G0378

== ENCOUNTER → 2021-11-19 | Outpatient (CLI) | payer OTHER, SELFPAY ==
[2021-11-19 12:32] LABS: Absolute Lymphocyte Count 1.25 X10^3/uL (0.83-4.51); Absolute Neutrophil Count 4.5 X10^3/uL (2.0-7.7); Basophil# 0.04 X10^3/uL; Basophil% 0.6 % (0-1); Eosinophil# 0.19 X10^3/uL; Eosinophils% 2.9 % (0-5); Hematocrit 50.9 % (40-54); Lymphocyte # 1.25 X10^3/ul (0.83-4.51); Lymphocyte % 18.9 % (19-41); Mean Corp Hgb Conc 33.4 g/dL (32-36); Mean Corpuscular Hgb 29.8 pg (27.0-32.0); Mean Corpuscular Volume 89.3 fL (80-94); Mean Platelet Vol. 9.6 fl (6.2-12.0); Monocyte# 0.58 X10^3/uL; Monocyte% 8.8 % (0-10); NRBC Flagged by Analyzer 0 % (0-5); Neutrophil % 68.2 % (47-70); Platelet Count 216 K/mm3 (150-450); RBC Distribution Width CV 12.8 % (11.6-14.6); RBC Distribution Width SD 41.6 fl (35.1-43.9); White Blood Count 6.6 K/mm3 (4.4-11.0)
[2021-11-19 12:49] LABS: Anion Gap 5 (5-15); BUN 29 mg/dL (7-18); BUN/Creat Ratio 24.8 RATIO (10-20); Calcium,Total 9.1 mg/dL (8.5-10.1); Chloride 104 mmol/L (98-107); Cholesterol 185 mg/dL (200); Creatinine, Serum 1.17 mg/dL (0.70-1.30); EST Glomerular Filtration Rate 67 mL/min (>60); Est Glom Filt Rate - Afr Amer 81 mL/min (>60); Glucose 136 mg/dL (74-106); High Density Lipoprotein 48 mg/dL; Potassium 4.4 mmol/L (3.5-5.1); Sodium Level 138 mmol/L (136-145); Triglycerides 109 mg/dL; Very Low Density Lipoprotein 22 mg/dL (5-40)
== END | disposition home or self-care (01) ==
PROVIDERS: PCP Family Medicine; Visit Provider Family Medicine
DX: I10 Essential (primary) hypertension (principal); R73.01 Impaired fasting glucose
CPT/HCPCS: 36415; 80048; 80061; 84443; 85025

== ENCOUNTER 2022-06-05 12:37 | Emergency (ER) | payer OTHER, SELFPAY ==
[2022-06-05 12:38] VITALS: BP 199/113; PULSE 61; RESP 16; TEMP 36.2; O2SAT 98; BMI 38.2
--- NOTE | 2022-06-05 12:48 | RAD_ITS ---
STUDY: X-RAY CHEST REASON FOR EXAM: Male, 62 years old. Substernal chest pain TECHNIQUE: 2 AP portable views COMPARISON: 05/16/2018 FINDINGS: EKG leads overlie the chest The lungs are clear and expanded. There is no demonstrated pleural abnormality. Normal size heart. Normal mediastinum and loraine. Normal visualized pulmonary arteries. Normal visualized aortic arch and descending thoracic aorta. Normal visualized thoracic spine. Normal visualized ribs, clavicles, and shoulders. There is no demonstrated abnormality of the visualized soft tissue structures of the upper abdomen. RAD/Chest 1 View (Portable) IMPRESSION: No acute pulmonary process Electronically Signed: Devonte Vasquez MD at 13:20 EDT ,
--- NOTE | 2022-06-05 12:49 | EDS_ITS ---
HPI History of Present Illness Chief Complaint: Hypertension Informant: patient Narrative Narrative: Patient presents secondary to hypertension. He states he is at the dentist last Monday and they noted his blood pressure to be elevated. He was just there for routine cleaning. He believes he checked his blood pressure about a week prior to that and that was in the 140s systolic. He is on metoprolol and hydrochlorothiazide for elevated blood pressure. He states he will intermittently feel lightheaded and have some chest pressure when his blood pressure is elevated. He does admit to taking extra dose of his metoprolol. [facility] Medical History History of hypertension Home Medications hydrochlorothiazide 25 mg tablet 25 mg PO DAILY 05/16/18 [History Last Taken Unknown] metoprolol tartrate 25 mg tablet 25 mg PO BID #60 tabs 05/17/18 [Rx Last Taken Unknown] pantoprazole 40 mg tablet,delayed release 40 mg PO DAILY ##30 05/17/18 [Rx Last Taken Unknown] losartan 50 mg tablet 50 mg PO DAILY #30 tabs 06/05/22 [Rx Last Taken Unknown] Allergy/AdvReac Type Severity Reaction Status Date / Time No Known Allergies Allergy Verified 06/05/22 12:38 Social History Smoking Status: Never smoker ROS ROS ED Constitutional Constitutional ED: Denies chills or fever(s) Eyes Eyes: Denies change in vision or discharge from eye(s) ENT ENT ED: Denies discharge from eye(s), rhinorrhea or sore throat Cardiovascular Cardiovascular: Reports chest pain; Denies palpitations Respiratory/Chest Respiratory/Chest: Denies cough or dyspnea Gastrointestinal Gastrointestinal: Denies abdominal pain, nausea or vomiting Genitourinary Genitourinary ED: Denies dysuria Musculoskeletal Musculoskeletal: Denies back pain or extremity pain Integumentary Denies Abrasions or rash Neurologic Neurologic: Denies headache(s) or weakness Psychiatric Psychiatric: Denies anxiety or depression Allergic/Immunologic Allergic/Immunologic ED: Denies lip swelling or urticaria EXAM Physical Exam Const Vital Signs: 06/05/22 12:38 06/05/22 12:49 06/05/22 13:32 Temperature 97.1 F L Temperature Source Temporal Pulse Rate 61 56 L Respiratory Rate 16 15 Respiratory Effort Normal Non-Labored Respiratory Pattern Normal Blood Pressure 199/113 H 142/93 H Blood Pressure Mean 141 109 Pulse Ox 98 97 Oxygen Delivery Method Room Air Room Air 06/05/22 13:42 Temperature Temperature Source Pulse Rate Respiratory Rate Respiratory Effort Respiratory Pattern Blood Pressure 127/95 H Blood Pressure Mean 105 Pulse Ox Oxygen Delivery Method Positive well nourished and well developed General Appearance ED: well developed HEENT Reports normocephalic and head/scalp atraumatic Eyes PERRL and EOMs intact bilaterally Neck supple Chest Wall inspection of chest normal and palpation of chest normal Resp normal respiratory effort and clear to auscultation bilaterally Cardio regular rate and regular rhythm GI normal to inspection, nondistended, normoactive bowel sounds Palpation: soft Extremity normal to inspection Neuro oriented x3 and no sensory deficits noted Sensorium / Orientation: alert Motor Exam: strength 5/5 throughout Psych mental status grossly normal Skin no rashes or lesions noted MDM MDM MDM Narrative Medical decision making narrative: 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 EKG obtained to evaluate for cardiac arrhythmia/ischemia. Chest x-ray obtained to evaluate for acute lung pathology, cardiac size, or mediastinal abnormality. Labwork obtained to evaluate for leukocytosis, anemia, and electrolyte derangement. History & Record Review Additional record(s) reviewed:: Prior inpatient record and Prior ED visit Lab Data Attestation: I reviewed the patient's lab results. Labs: Laboratory Results - last 24 hr 06/05/22 06/05/22 12:59 12:59 WBC 6.0 RBC 5.82 Hgb 17.1 H Hct 51.2 MCV 88.0 MCH 29.4 MCHC 33.4 RDW Std Deviation 40.4 RDW Coeff of Suad 12.6 Plt Count 235 MPV 9.2 Immature Gran % (Auto) 0.500 Neut % (Auto) 64.1 Lymph % (Auto) 20.9 [place] % (Auto) 9.5 Eos % (Auto) 3.7 Baso % (Auto) 1.3 H Absolute Neuts (auto) 3.8 Absolute Lymphs (auto) 1.25 Nucleated RBC % 0 Sodium 137 Potassium 3.9 Chloride 107 Carbon Dioxide 27.0 Anion Gap 3 L BUN 22 H Creatinine 1.15 Estim Creat Clear Calc 75.45 Est GFR (MDRD) Af Amer 82 Est GFR (MDRD) Non-Af 68 BUN/Creatinine Ratio 19.1 Glucose 127 H Calcium 9.4 Troponin I High Sens 7 Radiography Chest X-Ray - ED: 1 View, Read by ED Physician and Chronic Changes Diagnostic Testing: Clinical Impression(s) from Imaging Studies Chest X-Ray 06/05/22 12:48 IMPRESSION: No acute pulmonary process Electronically Signed: Devonte Vasquez MD at 13:20 EDT Reading Location ID and State: [facility] / [place] , Service support , EKG Initial EKG: Attestation: I personally reviewed and interpreted this EKG as follows: Interpretation: Sinus Bradycardia (Sinus bradycardia 59 bpm. No acute ischemia.) Treatment and Re-Evaluation :: EKG is sinus bradycardia with no evidence of acute ischemia. CBC and chemistry studies are unremarkable. Troponin is normal at 7. Chest x-ray per my interpretation reveals chronic changes with cardiomegaly. Radiology interpretation is reviewed. Patient's systolic blood pressure remained in the upper 180s systolic. He was given 10 mg of IV hydralazine. Blood pressure improved to 142/93 followed by 127/95. At this time on repeat eval his systolic pressure is 153. I spoke with Dr. Yan. Patient is to continue taking his double metoprolol dose at 50 mg twice daily. He is to continue his hydrochlorothiazide. We will add losartan 50 mg daily. The office will call him this week for a repeat visit and blood pressure check. Prescription for losartan will be sent to the pharmacy for him. He has metoprolol at home to use until he is seen in follow-up. I also encouraged him to keep a journal of his blood pressure readings to help his doctor determine appropriate dosing. Return instructions given. Discharge Plan Triage Chief Complaint: Hypertension ED Provider: Altagracia Das Dx/Rx/DC Orders Clinical Impression: Hypertension Instructions: ED Hypertension, Established Prescriptions: New losartan 50 mg tablet 50 mg PO DAILY Qty: 30 0RF No Action hydrochlorothiazide 25 MG tablet 25 mg PO DAILY metoprolol tartrate 25 MG tablet 25 mg PO BID Qty: 60 0RF pantoprazole 40 MG tablet 40 mg PO DAILY Qty: 30 0RF Primary Care Provider: Care Physician,No Primary Referrals: Vito Yan DO [Med Staff - Veterinary Science Teacher] - 3-5 Days Ricardo West MD [Non-Staff] - Activity Restrictions/Additional Instructions: As discussed, please continue to take your hydrochlorothiazide as prescribed and to double your metoprolol to 50 mg twice daily. We will add losartan to your blood pressure regimen. Disposition Disposition: Home, Self Care
[2022-06-05 13:04] LABS: Absolute Lymphocyte Count 1.25 X10^3/uL (0.83-4.51); Absolute Neutrophil Count 3.8 X10^3/uL (2.0-7.7); Basophil# 0.08 X10^3/uL; Basophil% 1.3 % (0-1); Eosinophil# 0.22 X10^3/uL; Eosinophils% 3.7 % (0-5); Hematocrit 51.2 % (40-54); Hemoglobin 17.1 g/dL (13.0-16.5); Lymphocyte # 1.25 X10^3/ul (0.83-4.51); Lymphocyte % 20.9 % (19-41); Mean Corp Hgb Conc 33.4 g/dL (32-36); Mean Corpuscular Hgb 29.4 pg (27.0-32.0); Mean Platelet Vol. 9.2 fl (6.2-12.0); Monocyte# 0.57 X10^3/uL; Monocyte% 9.5 % (0-10); NRBC Flagged by Analyzer 0 % (0-5); Neutrophil # 3.83 X10^3/uL (2.7-7.7); Neutrophil % 64.1 % (47-70); Platelet Count 235 K/mm3 (150-450); RBC Distribution Width CV 12.6 % (11.6-14.6); RBC Distribution Width SD 40.4 fl (35.1-43.9); Red Blood Count 5.82 M/mm3 (4.6-6.2)
[2022-06-05 13:24] LABS: Anion Gap 3 (5-15); BUN 22 mg/dL (7-18); BUN/Creat Ratio 19.1 RATIO (10-20); Calcium,Total 9.4 mg/dL (8.5-10.1); Chloride 107 mmol/L (98-107); Creatinine, Serum 1.15 mg/dL (0.70-1.30); EST Glomerular Filtration Rate 68 mL/min (>60); Est Glom Filt Rate - Afr Amer 82 mL/min (>60); Estimated Creatinine Clearance 75.45 ml/min; Glucose 127 mg/dL (74-106); Potassium 3.9 mmol/L (3.5-5.1); Sodium Level 137 mmol/L (136-145); Troponin-I HS 7 pg/mL (3.0-78.0)
[2022-06-05] MEDS: hydrALAZINE 20 MG/ML Vial 10 MG IV (13:25)
[2022-06-05 13:32] VITALS: BP 142/93; PULSE 56; RESP 15; O2SAT 97
[2022-06-05 13:42] VITALS: BP 127/95
== END 2022-06-05 14:07 | disposition home or self-care (01) ==
PROVIDERS: Emergency Provider Emergency Medicine; Referring Provider Emergency Medicine; Visit Provider Emergency Medicine
DX: I10 Essential (primary) hypertension (principal)
CPT/HCPCS: 71045; 80048; 84484; 85025; 93005; 96374; 99284; A4216

== ENCOUNTER → 2022-08-01 | Outpatient (CLI) | payer OTHER, SELFPAY ==
[2022-08-01 11:58] LABS: Absolute Lymphocyte Count 1.27 X10^3/uL (0.83-4.51); Basophil# 0.06 X10^3/uL; Basophil% 0.8 % (0-1); Eosinophil# 0.25 X10^3/uL; Eosinophils% 3.4 % (0-5); Hematocrit 50.7 % (40-54); Hemoglobin 16.6 g/dL (13.0-16.5); Lymphocyte # 1.27 X10^3/ul (0.83-4.51); Lymphocyte % 17.2 % (19-41); Mean Corp Hgb Conc 32.7 g/dL (32-36); Mean Corpuscular Hgb 29.8 pg (27.0-32.0); Mean Platelet Vol. 9.7 fl (6.2-12.0); Monocyte# 0.75 X10^3/uL; Monocyte% 10.2 % (0-10); NRBC Flagged by Analyzer 0 % (0-5); Neutrophil # 4.99 X10^3/uL (2.7-7.7); Neutrophil % 67.6 % (47-70); Platelet Count 250 K/mm3 (150-450); RBC Distribution Width CV 12.9 % (11.6-14.6); Red Blood Count 5.57 M/mm3 (4.6-6.2); White Blood Count 7.4 K/mm3 (4.4-11.0)
[2022-08-01 12:11] LABS: Anion Gap 4 (5-15); BUN 33 mg/dL (7-18); BUN/Creat Ratio 25.8 RATIO (10-20); Calcium,Total 9.6 mg/dL (8.5-10.1); Chloride 106 mmol/L (98-107); Creatinine, Serum 1.28 mg/dL (0.70-1.30); EST Glomerular Filtration Rate 60 mL/min (>60); Est Glom Filt Rate - Afr Amer 73 mL/min (>60); Glucose 120 mg/dL (74-106); Potassium 5.1 mmol/L (3.5-5.1); Sodium Level 139 mmol/L (136-145)
== END | disposition home or self-care (01) ==
LOC: BFHLAB 08:56
PROVIDERS: PCP Nurse Practitioner Family; Referring Provider Nurse Practitioner Family; Visit Provider Nurse Practitioner Family
DX: I10 Essential (primary) hypertension (principal)
CPT/HCPCS: 36415; 80048; 85025

== ENCOUNTER → 2023-06-30 | Outpatient (CLI) | payer OTHER, SELFPAY ==
--- NOTE | 2023-06-30 09:11 | RAD_ITS ---
EXAM: XR RIGHT KNEE COMPLETE, 4 OR MORE VIEWS CLINICAL INDICATION: KNEE PAIN, ARTHRITIS? TECHNIQUE: Four or more views of the right knee. COMPARISON: No relevant prior studies available. FINDINGS: BONES/JOINTS: Narrowing of the medial knee joint compartment noted associated with osteophytosis. No acute fracture or subluxation. Joint effusion is present. SOFT TISSUES: Normal. No soft tissue swelling or gas. No radiopaque foreign body. RAD/Knee 4 or More Views IMPRESSION: Joint effusion. Moderate osteoarthritis. Electronically Signed: Fausto Larry MD at 11:06 EDT ,
== END | disposition home or self-care (01) ==
PROVIDERS: PCP Nurse Practitioner Family; Referring Provider Nurse Practitioner Family; Visit Provider Nurse Practitioner Family
DX: M25.561 Pain in right knee (principal)
CPT/HCPCS: 73564

== ENCOUNTER → 2024-01-12 | Outpatient (CLI) | payer OTHER, SELFPAY ==
[2024-01-12 10:00] LABS: Absolute Lymphocyte Count 1.42 X10^3/uL (0.83-4.51); Basophil# 0.07 X10^3/uL; Basophil% 0.9 % (0-1); Eosinophil# 0.25 X10^3/uL; Eosinophils% 3.3 % (0-5); Hematocrit 50.7 % (40-54); Hemoglobin 16.5 g/dL (13.0-16.5); Lymphocyte # 1.42 X10^3/ul (0.83-4.51); Mean Corp Hgb Conc 32.5 g/dL (32-36); Mean Corpuscular Hgb 28.8 pg (27.0-32.0); Mean Corpuscular Volume 88.5 fL (80-94); Mean Platelet Vol. 9.2 fl (6.2-12.0); Monocyte# 0.71 X10^3/uL; Monocyte% 9.5 % (0-10); NRBC Flagged by Analyzer 0 % (0-5); Neutrophil # 4.98 X10^3/uL (2.7-7.7); Neutrophil % 66.6 % (47-70); Platelet Count 228 K/mm3 (150-450); RBC Distribution Width CV 12.5 % (11.6-14.6); RBC Distribution Width SD 40.2 fl (35.1-43.9); Red Blood Count 5.73 M/mm3 (4.6-6.2); White Blood Count 7.5 K/mm3 (4.4-11.0)
[2024-01-12 10:43] LABS: ALB/GLOB Ratio 1.2 RATIO (0.9-2.4); AST(SGOT) 20 U/L (15-37); Alanine Aminotransfer ALT/SGPT 31 U/L (16-61); Alkaline Phosphatase 73 U/L (45-117); Anion Gap 6 (5-15); BUN 24 mg/dL (7-18); BUN/Creat Ratio 18.8 RATIO (10-20); Calcium,Total 9.3 mg/dL (8.5-10.1); Chloride 102 mmol/L (98-107); Cholesterol 214 mg/dL (200); Creatinine, Serum 1.28 mg/dL (0.70-1.30); EST Glomerular Filtration Rate 60 mL/min (>60); Est Glom Filt Rate - Afr Amer 72 mL/min (>60); Globulin 3.4 g/dL (2.2-4.2); Glucose 168 mg/dL (74-106); High Density Lipoprotein 41 mg/dL; PSA,Total - Annual Screen 2.34 ng/mL (0.00-4.00); Potassium 4.3 mmol/L (3.5-5.1); Protein, Total 7.4 g/dL (6.4-8.2); Sodium Level 137 mmol/L (136-145); Triglycerides 188 mg/dL; Very Low Density Lipoprotein 38 mg/dL (5-40)
== END | disposition home or self-care (01) ==
LOC: MTLAB 08:55
PROVIDERS: PCP Nurse Practitioner Family; Referring Provider Nurse Practitioner Family; Visit Provider Nurse Practitioner Family
DX: I10 Essential (primary) hypertension (principal); E78.5 Hyperlipidemia, unspecified; Z12.5 Encounter for screening for malignant neoplasm of prostate
CPT/HCPCS: 36415; 80053; 80061; 84153; 85025; G0103

== ENCOUNTER → 2024-07-31 | Outpatient (CLI) | payer OTHER, SELFPAY ==
[2024-08-02 05:08] LABS: Fructosamine 258 umol/L (0-285)
== END | disposition home or self-care (01) ==
LOC: BFHLAB 14:37
PROVIDERS: PCP Nurse Practitioner Family; Visit Provider Nurse Practitioner Family
DX: E11.9 Type 2 diabetes mellitus without complications (principal)
CPT/HCPCS: 36415; 82985

== ENCOUNTER → 2024-10-15 | Outpatient (CLI) | payer MEDICARE, OTHER, SELFPAY ==
--- NOTE | 2024-10-15 16:30 | RAD_ITS ---
PROCEDURE: KNEE 4 OR MORE VIEWS 10/15/2024 REASON FOR EXAM: PAIN IN KNEE TECHNIQUE: Procedure Code: RADKN Modality: DX Procedure: KNEE 4 OR MORE VIEWS Laterality: FINDINGS: No evidence of acute fracture or dislocation. Left knee arthroplasty. Left knee joint effusion. RAD/Knee 4 or More Views IMPRESSION: Intact left knee arthroplasty. Joint effusion. Reading Location: [id number]
== END | disposition home or self-care (01) ==
LOC: MTRAD 16:27
PROVIDERS: PCP Nurse Practitioner Family; Referring Provider Nurse Practitioner Family; Visit Provider Nurse Practitioner Family
DX: M25.562 Pain in left knee (principal); M25.462 Effusion, left knee; Z96.652 Presence of left artificial knee joint
CPT/HCPCS: 73564

== ENCOUNTER → 2024-11-14 | Outpatient (CLI) | payer MEDICARE, OTHER, SELFPAY ==
[2024-11-14 18:49] LABS: Hematocrit 45.9 % (40-54); Hemoglobin 15.6 g/dL (13.0-16.5); Immature Granulocytes Count 0.030 X10^3/uL (0.0-0.0); Mean Corp Hgb Conc 34.0 g/dL (32-36); Mean Corpuscular Volume 88.1 fL (80-94); Mean Platelet Vol. 9.5 fl (6.2-12.0); NRBC Flagged by Analyzer 0 % (0-5); Platelet Count 251 K/mm3 (150-450); RBC Distribution Width CV 12.6 % (11.6-14.6); RBC Distribution Width SD 41.0 fl (35.1-43.9); Red Blood Count 5.21 M/mm3 (4.6-6.2); White Blood Count 6.6 K/mm3 (4.4-11.0)
[2024-11-14 19:24] LABS: CRP < 3.00 mg/L (0.0-3.0)
== END | disposition home or self-care (01) ==
LOC: MTLAB 15:50
PROVIDERS: PCP Nurse Practitioner Family; Referring Provider Nurse Practitioner Family; Visit Provider Nurse Practitioner Family
DX: T84.84XA Pain due to internal orthopedic prosthetic devices, implants and grafts, initial encounter (principal); Z96.652 Presence of left artificial knee joint
CPT/HCPCS: 36415; 85025; 85652; 86140

== ENCOUNTER → 2024-11-29 | Outpatient (CLI) | payer MEDICARE, OTHER, SELFPAY ==
--- NOTE | 2024-11-29 08:39 | NM_ITS ---
PROCEDURE: BONE SCAN THREE PHASE 11/29/2024 REASON FOR EXAM: LEFT KNEE OSTEO TECHNIQUE: Procedure Code: NMBOT Modality: NM Procedure: BONE SCAN THREE PHASE Blood flow, blood pool, and delayed phase imaging of the knees after radiopharmaceutical administration. RADIOPHARMACEUTICAL: 26.0 mCi Technetium-99m MDP IV COMPARISON: Left knee x-ray, 10/15/2024. FINDINGS: Blood flow: There is increased blood flow about the tibial and femoral components of the left knee arthroplasty. Blood pool: There is increased blood pool activity about the tibial and femoral components of the left total knee arthroplasty. Delayed: There is relative increased activity about the tibial component of the left total knee arthroplasty. There is also increased activity to the medial femoral condyle of the right knee. NM/Bone Scan Three Phase IMPRESSION: 1. There is relative increased activity about the tibial component of the left total knee arthroplasty. Review of the recent images of the left knee demonstrate lucency about the tibial component consiste nt with loosening. Additionally, there is a large hyperdense knee joint effusion suggesting a hemorrhagic component. The degree of activity about the femoral component is felt to be normal. 2. There is increased activity at the medial femoral condyle of the [place] rig ht knee, consistent with significant arthropathy. Reading Location: [place] [id number]
== END | disposition home or self-care (01) ==
LOC: NM 08:37
PROVIDERS: PCP Nurse Practitioner Family; Referring Provider Specialist; Visit Provider Specialist
DX: M17.12 Unilateral primary osteoarthritis, left knee (principal)
CPT/HCPCS: 78315; A9503

== ENCOUNTER 2024-12-04 13:30 | Outpatient (RCR) | payer MEDICARE, OTHER, SELFPAY ==
[2024-11-27 13:15] VITALS: BMI 33.3
--- NOTE | 2024-11-28 09:05 | WC ---
PHOTO: LEFT MOHR 11/27/24
--- NOTE | 2024-11-28 13:46 | VDLE_ITS ---
Reason For Study Reason For Study: Ulcer RIGHT LEFT CFV is compressible, spontaneous, phasic, competent CFV is compressible, spontaneous, phasic, competent, and demonstrates normal augmentation. and demonstrates normal augmentation. FV is compressible, spontaneous, phasic, competent FV is compressible, spontaneous, phasic, competent and demonstrates normal augmentation. and demonstrates normal augmentation. POP V is compressible, spontaneous, phasic, competent POP V is compressible, spontaneous, phasic, competent and demonstrates normal augmentation. and demonstrates normal augmentation. T/P Trunk is compressible. T/P Trunk is compressible. PTV is compressible. PTV is compressible. RT PerV is compressible. LT PerV is compressible. SFJ is competent and measures 0.77 cm. SFJ is competent and measures 0.74 cm. GSV proximal thigh measures 0.34 x 0.34 cm. GSV proximal thigh measures 0.47 x 0.51 cm. GSV above knee is competent. GSV above knee is competent. GSV at knee measures 0.36 x 0.37 cm. GSV at knee measures 0.28 x 0.30 cm. GSV below knee is INCOMPETENT for greater than 0.5 GSV below knee is INCOMPETENT for greater than 0.5 seconds. seconds. ASV proximal calf is INCOMPETENT for greater than 0.5 ASV mid thigh is INCOMPETENT for greater than 0.5 seconds and measures 0.33 x 0.34 cm. seconds and measures 0.41 x 0.44 cm. INCOMPETENT vocational technical education director noted 20 cm above the medial ASV mid thigh connect GSV mid thigh to GSV prox calf. malleolus. Varicose vein on malone extends from ASV mid thigh at SSV mid calf is competent and measures 0.49 x 0.46 proximal calf. cm. INCOMPETENT perforators noted 11 and 19 cm above the Procedure medial malleolus. This is a venous duplex using B-mode, color flow and SSV mid calf is competent and measures 0.34 x 0.35 spectral Doppler. cm. Exam performed in department. Patient was scanned in reverse Trendelenburg position during reflux assessment. VL/Venous Duplex US - Benjie Extrem Interpretation Summary Deep veins of the lower extremities are bilaterally patent and compressible seg mentally. There is no evidence of deep vein thrombosis on either side. Valvular competence appears intact within the p roximal deep venous systems bilaterally. The great saphenous veins appear bilaterally patent and compressible segmentall y. Sapheno-femoral junctions are bilaterally competent . The right great saphenous vein appears competent above the knee. The right great saphenous vein appears incompetent below the knee. The left great saphenous vein appears compe tent above the knee. The left great saphenous vein appears incompetent below the knee. Small saphenous veins are pa tent and competent bilaterally. The accessory saphenous vein in the right proximal calf is incompetent. An incompet ent vocational technical education director vein is noted in the right calf, located 20 centimeters proximal to the right medial malleolus. An accesso ry saphenous vein in the left mid-thigh is incompetent, which appears to give rise to varicosities more distally. Incom petent vocational technical education director veins are noted in the left calf, located 11 centimeters and 19 centimeters proximal to the left media l malleolus. Ordering Physician: Jh Kirkland Referring Physician: Chelle Cleary Performed By: Jany Healy RVT
--- NOTE | 2024-11-28 16:58 | PCM.WC.HP ---
History of Present Illness Date of Service: 11/27/24 Chief Complaint: Chronic venous hypertension with inflammation and ulceration–left lower extremity History of Wound: This is a 64-year-old male who presented with an open ulceration on left pretibial surface, and a history of recent episodes of spontaneous bleeding from the site. The patient denied a history of deep vein thrombosis. He also denied a history of significant swelling in his lower extremities. He indicates that the episodes of bleeding have typically occurred after a hot shower. He denies trauma to the area. He is active. He claims to sleep on a flat mattress at night. 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 [facility] Medical History Varicose veins, lower extremity, with inflammation, ulcerated Venous hypertension, chronic, with ulcer and inflammation Chronic venous insufficiency Venous stasis ulcer of calf with fat layer exposed with varicose veins Osteoarthritis History of hypertension Home Medications Medication Instructions Recorded Last Taken Type hydrochlorothiazide 25 mg tablet 25 mg PO DAILY 05/16/18 Unknown History metoprolol tartrate 25 mg tablet 25 mg PO BID #60 tabs 05/17/18 Unknown Rx losartan 50 mg tablet 50 mg PO DAILY #30 tabs 06/05/22 Unknown Rx terbinafine HCl 250 mg tablet 250 mg PO DAILY 11/27/24 Unknown History Allergy/AdvReac Type Severity Reaction Status Date / Time No Known Allergies Allergy Verified 11/27/24 13:08 Surgical History History of rotator cuff surgery History of tonsillectomy History of total left knee replacement History of cataract extraction Social History Smoking Status: Never smoker Vital Signs Vital Signs Vital Signs: Weight Weight: 260 lb Body Mass Index (BMI) 33.3 Physical Exam Const alert, oriented x3, no apparent distress, no limitations, healthy appearing and well nourished Constitutional Narrative: The patient's BMI is 33.4. General Appearance: cooperative, comfortable, well kempt and well developed Orientation / Consciousness: awake, oriented to person, oriented to place and oriented to time Exam Limitations: no limitations HEENT normocephalic and head/scalp atraumatic Head and Scalp: normal to inspection, normocephalic and atraumatic Face and Sinus: normal facial exam Nose: external nose normal External Ear: external ears normal Eyes EOMs intact bilaterally General Eye: normal appearance of both eyes Alignment: alignment normal Neck full ROM Resp normal respiratory effort, normal air movement, no retractions and no use of accessory muscles Effort and Inspection: able to speak in complete sentences Extremity no calf tenderness General Extremity: Negative for clubbing or cyanosis Skin Wound Narrative: An open ulceration is noted on the pretibial surface of the left lower extremity. Dimensions are documented elsewhere. It is circular. There is no active bleeding at this time. It appears full-thickness, extending through all layers of the dermis and into the subcutaneous tissues. Of note, there is a very prominent superficial varicosity immediately above the ulceration, and appearing to lead directly to the ulceration itself. No significant swelling or edema are noted in the patient's left lower extremity. Rubio phlebectatica is noted on the medial aspect of the left foot. Neuro oriented x3, CN's II-XII intact bilaterally, moves all extremities, no focal motor deficits and no sensory deficits noted Sensorium / Orientation: awake, alert, oriented to person, oriented to place and oriented to time Speech: speech normal Psych Appearance: grossly normal and appropriate Attitude: calm Activity / Motor Behavior: appropriate eye contact Speech: normal speech Mood & Affect: euthymic mood Thought Process: normal thought process Thought Content: normal thought content Attention / Concentration: attention grossly intact Debridement Note Debridement Note No debridement was completed: No debridement was completed today Post-Debridement Measurements and Additional Note: Post-Debridement Measurements/Treatment - Nurse 1 - General Ulcer Assessment Start: 11/27/24 13:13 Freq: Status: Active Protocol: [email or web address] Activity Type Activity Date Activity User E-sign Co-sign Detail Recorded Client Recorded Date Recorded By Document 11/27/24 13:15 CP [id number] 11/27/24 13:37 CP 11/27/24 13:15 - Today's Visit Information Type of service Initial Visit Arrival Mode Ambulatory Patient Identification Verified (Name & Yes ) Height and Weight Height 6 ft 2 in Weight 260 lb Weight in Pounds 260.0 lbs Weight Measurement Method Stated by Patient Body Mass Index (BMI) 33.3 BMI Classification Obese History Since Last Visit- (Skip if this is Patient's initial visit) Left Footwear Regular Shoe Right Footwear Regular Shoe Pain Scale: 0-10 Numeric Is Patient Pain Free? Yes Lower Extremity Assessment/ Foot Assessment/ Toe Nail Assessment Right -Dorsalis Pedis Palpable Yes -Dorsalis Pedis Doppler Multiphasic -Extremity Color Normal -Hair Growth on Legs Yes -Hair Growth on Toes Yes -Temperature of Extremity Warm -Capillary Refill Less than 3 Seconds -Dependent Rubor No -Blanched when Elevated No -Lipodermatosclerosis No -Other Deformity No -Prior Foot Ulcer No -Charcot Joint No -Prior Amputation No -Thick Yes -Discolored Yes -Deformed No -Improper Length & Hygeine No Left -Claudication Assessment None -Dorsalis Pedis Palpable Yes -Dorsalis Pedis Doppler Multiphasic -Extremity Color Normal -Hair Growth on Legs Yes -Hair Growth on Toes Yes -Temperature of Extremity Warm -Capillary Refill Less than 3 Seconds -Dependent Rubor No -Blanched when Elevated No -Prior Foot Ulcer No -Charcot Joint No -Prior Amputation No -Thick Yes -Discolored Yes -Deformed No -Improper Length & Hygeine No Neuropathy Assessment Feet - Top Side and Bottom <Entered> (a) Communication Assessment Preferred language Georgian Geography Professor Required No Able to Read Yes Able to Write Yes Communication Tools None Caregiver Communication Skills No Impairment Impairment Right Hearing Abillity Normal Left Hearing Abillity Normal Visual Assistive Devices Glasses Teaching Assessment Preferences Verbal,Written, Demonstration Barriers to Learning Knowledge Deficit Readiness To Learn Excellent Willingness to Engage in Self Management High Activies Readiness to Engage in Self Management High Activities Anxiety Level Calm Cooperation Cooperative Perception Coherent Interest in Health Problem Asks Questions Education Importance Acknowledges Need Does Patient Smoke tobacco or other No substances Smoking Status Never smoker Is Patient Diabetic No Functional Assessment Recent Decline in Ability to Perform Denies Any Declines Assistive Device With Patient N/A Culture/Muslim/Production Controller Cultural/Muslim Needs that may affect No Treatment Plan Would you allow our hospital rug dry room attendant to No meet you for the purpose of spiritual/ emotional support? Production Controller to contact place of shinto No Teaching: Wound Center *Welcome to the Wound Center -Person Taught Patient -Teaching Method Discussion -Response to teaching Verbalize Understanding (a) 1 - + 2 - - WC - Nurse 1 - General Ulcer Measurement Start: 11/27/24 13:13 Freq: Status: Active Protocol: Activity Type Activity Date Activity User E-sign Co-sign Detail Recorded Client Recorded Date Recorded By Document 11/27/24 13:15 CP [id number] 11/27/24 13:37 CP 11/27/24 13:15 Wound Center Nurse 1 1. left malone -Current Size (cm) - Length 0.5 -Current Size (cm) - Width 0.7 -Current Size (cm) - Depth 0.1 -Total Square Cm 0.35 -Photo Taken Yes -Exudate Amt Small -Exudate Type Serosanguineous -Wound Margin Flat & Intact -Granulation Amt None Present (0 %) -Slough/Fibrin Yes -Necrosis Amt Large (67-100%) -Necrotic Tissue Type Adherent Slough -Structure Exposed N/A -Texture (Jen-wound Skin Appearance) No Abnormality -Moisture (Jen-wound Skin Appearance) No Abnormality -Color (Jen-wound Skin Appearance) No Abnormality -Temperature (Jen-wound Skin No Abnormality Appearance) (Pt Warm) -Tenderness on Palpation (Jen-wound No Skin Appearance) -Ulcer Cleansing Rinsed/ Irrigated with Saline -Foul Odor after Cleansing No -Anesthetic Used 5% Lidocaine Gel Left Calf (cm) 40 Left Ankle (cm) 23.5 WC - Nurse 2 - General Ulcer CM Notes Start: 11/27/24 13:13 Freq: Status: Active Protocol: Activity Type Activity Date Activity User E-sign Co-sign Detail Recorded Client Recorded Date Recorded By Document 11/27/24 13:50 GM [id number] 11/27/24 14:00 GM 11/27/24 13:50 Wound Center Nurse 2 1. left malone -Time 13:50 -Correct Patient Yes -Correct Side, Site, Position Yes -Correct Procedure No -Procedure Performed No -Post Debridement (cm) - Length 0.5 -Post Debridement (cm) - Width 0.5 -Post Debridement (cm) - Depth 0.1 -Total Square (Post) (cm) 0.25 -Tunneling No -Undermining/Tunneling No -Circular Undermining No -Wound/Ulcer Outcome Not Healed -Ulcer Cleansing Not Cleansed -Foul Odor after Cleansing No -Bioengineered Tissue No -Bleeding Controlled with NA Pain Scale: 0-10 Numeric Is Patient Pain Free? Yes WC - Nurse 3 - General Ulcer D/C NN Start: 11/27/24 13:13 Freq: Status: Active Protocol: Activity Type Activity Date Activity User E-sign Co-sign Detail Recorded Client Recorded Date Recorded By Document 11/27/24 14:22 CP [id number] 11/27/24 14:23 CP 11/27/24 14:22 Wound Care Center Nurse 3 1. left malone -Ulcer Cleansing Rinsed/ Irrigated with Saline -Foul Odor after Cleansing No -Primary Dressing Applied C Hydrogel -Primary Dressing Covered/Secured with Dry Gauze, Secured with Tape -Other Covering adaptic -Hydrogel 1 LLE -Tubular Bandage Double Layer -Size of Tubigrip Used Size D -Size D ($) 2 Pain Scale: 0-10 Numeric Is Patient Pain Free? Yes WC - Visit Discharge Discharge Condition Stable Transportation Private Auto Clinical Summary of Care Provided Yes Lab / Micro Data Labs: Laboratory Tests 11/14/24 15:53 WBC 6.6 Hgb 15.6 Hct 45.9 Plt Count 251 ESR 2 C-React Prot Ext Range < 3.00 Charges/Coding Visit Charges Office Visits / Consults: [id number] OV L4 New 45min Assessment/Plan Assessment/Plan (1) Venous stasis ulcer of calf with fat layer exposed with varicose veins: CODE(S): I83.002 - Varicose veins of unspecified lower extremity with ulcer of calf; L97.202 - Non-pressure chronic ulcer of unspecified calf with fat layer exposed QUALIFIERS: Laterality: left Qualified Code(s): I83.022 - Varicose veins of left lower extremity with ulcer of calf; L97.222 - Non-pressure chronic ulcer of left calf with fat layer exposed (2) Venous hypertension, chronic, with ulcer and inflammation: CODE(S): I87.339 - Chronic venous hypertension (idiopathic) with ulcer and inflammation of unspecified lower extremity QUALIFIERS: Laterality: left Qualified Code(s): I87.332 - Chronic venous hypertension (idiopathic) with ulcer and inflammation of left lower extremity (3) Varicose veins, lower extremity, with inflammation, ulcerated: CODE(S): I83.209 - Varicose veins of unspecified lower extremity with both ulcer of unspecified site and inflammation; L97.909 - Non-pressure chronic ulcer of unspecified part of unspecified lower leg with unspecified severity QUALIFIERS: Laterality: left Lower extremity ulceration location: calf Non-pressure ulcer stage: with fat layer exposed Qualified Code(s): I83.222 - Varicose veins of left lower extremity with both ulcer of calf and inflammation; L97.222 - Non-pressure chronic ulcer of left calf with fat layer exposed (4) Chronic venous insufficiency: CODE(S): I87.2 - Venous insufficiency (chronic) (peripheral) (5) Exertional dyspnea: CODE(S): R06.09 - Other forms of dyspnea (6) Hypertension: CODE(S): I10 - Essential (primary) hypertension (7) Osteoarthritis: CODE(S): M19.90 - Unspecified osteoarthritis, unspecified site (8) History of cataract extraction: CODE(S): Z98.49 - Cataract extraction status, unspecified eye (9) History of total left knee replacement: CODE(S): Z96.652 - Presence of left artificial knee joint (10) History of tonsillectomy: CODE(S): Z90.89 - Acquired absence of other organs (11) History of rotator cuff surgery: CODE(S): Z98.890 - Other specified postprocedural states PLAN: Plan This is a generally healthy and active 64-year-old male who presented with an open ulceration on the left pretibial surface, relating several episodes of spontaneous bleeding from the site. Based upon the patient's history and presenting manifestations, it appears as though this ulceration is due to chronic venous hypertension with inflammation and ulceration. By physical examination, there is a very large, prominent superficial varicosity in the immediate vicinity of the ulceration, suggesting high pressure within the venous system at this site. It is suspected that patient's superficial vein has eroded through the dermal and epidermal layers, resulting in an ulceration, with recent episodes of spontaneous bleeding. As a result, debridement was not performed at this visit, due to concerns regarding the potential for significant bleeding. A lengthy discussion has been undertaken with the patient regarding the appropriate measures in the management of this suspected high-pressure venous ulceration. Conservative measures are to be implemented. These are to include leg elevation as much as possible, during both daytime and nighttime hours. Leg elevation is to be to heart level, or higher. The patient has been encouraged to continue sleeping on a flat mattress at night. His legs are to be elevated during daytime hours as well. Prolonged idle sitting has been discouraged. Activity/ambulation has been encouraged. We are to implement the use of collagen hydrogel topically to the ulceration on a daily basis. The patient has been provided the product and instructions in the appropriate means of application. Adaptic and gauze are also to be used as well. Compression is to be provided by means of a double Tubigrip compression sleeve, which is to be donned on a daily basis. Ultimately, the patient will benefit from graduated compression stockings of at least 20 to 30 mmHg for long-term use. We are to obtain a venous duplex examination to assess the venous system in the patient's lower extremities. Ultimately, a venous ablation procedure or sclerotherapy may benefit the patient. Patient has been instructed to apply manual pressure and to elevate his leg should further bleeding episodes occur in the future. The patient is to follow-up for reevaluation in 1 week. Total time: 48 minutes
[2024-12-03 09:16] VITALS: BP 153/94; PULSE 54; RESP 16; TEMP 36.4; BMI 33.3
[2024-12-04 13:23] VITALS: BP 146/86; PULSE 73; RESP 16; TEMP 36.3; BMI 33.3
--- NOTE | 2024-12-04 16:42 | HP.PCM_ITS ---
History of Present Illness Date of Service: 12/04/24 Chief Complaint: Chronic venous hypertension with inflammation and ulcerat ion–left lower extremity History of Wound: This is a 64-year-old male who presented with an open ulceration on the left pretibial surface, and a history of recent episodes of s pontaneous bleeding from the site. The patient denied a history of deep vein thrombosis. He also denied a history of significant swelling in his lower extremities. He indicates that the episodes of bleeding have typically occurred after a hot shower. He denies trauma to the area. He is active. He claims to sleep on a flat mattress at night. 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 [facility] Medical History Varicose veins, lower extremity, with inflammation, ulcerated Venous hypertension, chronic, with ulcer and inflammation Chronic venous insufficiency Venous stasis ulcer of calf with fat layer exposed with varicose veins Osteoarthritis History of hypertension Home Medications Medication Instructions Recorded Last Taken Type hydrochlorothiazide 25 mg tablet 25 mg PO DAILY Unknown History metoprolol tartrate 25 mg tablet 25 mg PO BID #60 tabs 05/17/18 Unknown Rx losartan 50 mg tablet 50 mg PO DAILY #30 tabs 05/09 Unknown Rx terbinafine HCl 250 mg tablet 250 mg PO DAILY 11/27/24 Unknown History Allergy/AdvReac Type Severity Reaction Status Date / Time No Known Allergies Allergy Verified 11/27/24 13:08 Surgical History History of rotator cuff surgery History of tonsillectomy History of total left knee replacement History of cataract extraction Social History Smoking Status: Never smoker Vital Signs Vital Signs Vital Signs: 12/04/24 13:23 Temperature 97.3 F L Temperature Source Temporal Pulse Rate 73 Respiratory Rate 16 Blood Pressure 146/86 H Blood Pressure Mean 106 Blood Pressure Source Monitor Blood Pressure Location Left Arm Weight Weight: 260 lb Body Mass Index (BMI) 33.3 Physical Exam Const alert, oriented x3, no apparent distress, no limitations, healthy appearing and well nourished Constitutional Narrative: The patient's BMI is 33.4. General Appearance: cooperative, comfortable, well kempt and well developed Orientation / Consciousness: awake, oriented to person, oriented to place and oriented to time Exam Limitations: no limitations HEENT normocephalic and head/scalp atraumatic Head and Scalp: normal to inspection, normocephalic and atraumatic Face and Sinus: normal facial exam Nose: external nose normal External Ear: external ears normal Eyes EOMs intact bilaterally General Eye: normal appearance of both eyes Alignment: alignment normal Neck full ROM Resp normal respiratory effort, normal air movement, no retractions and no use of accessory muscles Effort and Inspection: able to speak in complete sentences Extremity no calf tenderness General Extremity: Negative for clubbing or cyanosis Skin Wound Narrative: An open ulceration is noted on the pretibial surface of the left lower extremity. Dimensions are documented elsewhere. It has decreased in size since the patient's last visit, 1 week ago. It is circular. There is no active bleeding at this time. It appears full-thickness, extending through all layers of the dermis and into the subcutaneous tissues. Of note, there is a very large, prominent superficial varicosity immediately above the ulceration, and appearing to lead directly to the ulceration itself. No significant swelling or edema are noted in the patient's left lower extremity. Rubio phlebectatica is noted on the medial aspect of the left foot. Neuro oriented x3, CN's II-XII intact bilaterally, moves all extremities, no focal motor deficits and no sensory deficits noted Sensorium / Orientation: awake, alert, oriented to person, oriented to place and oriented to time Speech: speech normal Psych Appearance: grossly normal and appropriate Attitude: calm Activity / Motor Behavior: appropriate eye contact Speech: normal speech Mood & Affect: euthymic mood Thought Process: normal thought process Thought Content: normal thought content Attention / Concentration: attention grossly intact Debridement Note Debridement Note No debridement was completed: No debridement was completed today Post-Debridement Measurements and Additional Note: Post-Debridement Measurements/Treatment MAVERICK - Nurse 1 - General Ulcer Assessment Start: 11/27/24 13:13 Freq: Status: Active Protocol: DANNI Activity Type Activity Date Activity User E-sign Co-sign Detail Recorded Client Recorded Date Recorded By Document 11/27/24 13:15 CP [id number] 11/27/24 13:37 CP Document 12/03/24 09:16 TS [id number] 12/03/24 09:27 TS Document 12/04/24 13:23 TS [id number] 12/04/24 13:30 TS 11/27/24 12/03/24 12/04/24 13:15 09:16 13:23 WC - Today's Visit Information Type of service Initial Visit Follow-up Visit Follow-up Visit (Physician/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 MIXER HELPER (Physician/COOKIE MIXER HELPER ) ) Arrival Mode Ambulatory Ambulatory Ambulatory Patient Identification Verified (Name & Yes Yes Yes ) Patient Requires Transmission-Based No Precautions Safety Precautions Fall Prevention Height and Weight Height 6 ft 2 in Weight 260 lb Weight in Pounds 260.0 lbs Weight Measurement Method Stated by Patient Body Mass Index (BMI) 33.3 33.3 33.3 BMI Classification Obese Obese Obese Vital Signs Temperature (97.8 F-99.1 F) 97.5 F L 97.3 F L Temperature Source Temporal Temporal Pulse Rate (60-100) 54 L 73 Pulse Location Monitor Monitor Respiratory Rate (12-18) 16 16 Respiratory rate source Observation Observation Oxygen Delivery Method Room Air Blood Pressure (90/60-120/80) 153/94 H 146/86 H Blood Pressure Mean 113 106 Source Monitor Monitor Position Semi-Fowlers Blood Pressure Location Left Arm Left Arm History Since Last Visit- (Skip if this is Patient's initial visit) Have you changed medications since your No No last visit? Any new allergies or adverse reactions No No Had a fall/change in ADL's that may No No increase risk of falls Signs or symptoms of abuse and/or No No neglect since last visit Have you been in the hospital since your No No last visit? Has dressing in place as prescribed Yes Yes Has compression in place as prescribed Yes N/A Has offloadiing in place as prescribed N/A N/A Experienced any changes in pain level or No No management Left Footwear Regular Shoe Regular Shoe Regular Shoe Right Footwear Regular Shoe Regular Shoe Regular Shoe Pain Scale: 0-10 Numeric Is Patient Pain Free? Yes Yes Yes Lower Extremity Assessment/ Foot Assessment/ Toe Nail Assessment Right -Dorsalis Pedis Palpable Yes -Dorsalis Pedis Doppler Multiphasic -Extremity Color Normal -Hair Growth on Legs Yes -Hair Growth on Toes Yes -Temperature of Extremity Warm -Capillary Refill Less than 3 Seconds -Dependent Rubor No -Blanched when Elevated No -Lipodermatosclerosis No -Other Deformity No -Prior Foot Ulcer No -Charcot Joint No -Prior Amputation No -Thick Yes -Discolored Yes -Deformed No -Improper Length & Hygeine No Left -Claudication Assessment None -Dorsalis Pedis Palpable Yes -Dorsalis Pedis Doppler Multiphasic -Extremity Color Normal -Hair Growth on Legs Yes -Hair Growth on Toes Yes -Temperature of Extremity Warm -Capillary Refill Less than 3 Seconds -Dependent Rubor No -Blanched when Elevated No -Prior Foot Ulcer No -Charcot Joint No -Prior Amputation No -Thick Yes -Discolored Yes -Deformed No -Improper Length & Hygeine No Neuropathy Assessment Feet - Top Side and Bottom <Entered> (a) Communication Assessment 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 No Able to Read Yes Able to Write Yes Communication Tools None Caregiver Communication Skills No Impairment Impairment Right Hearing Abillity Normal Left Hearing Abillity Normal Visual Assistive Devices Glasses Teaching Assessment Preferences Verbal,Written, Demonstration Barriers to Learning Knowledge Deficit Readiness To Learn Excellent Willingness to Engage in Self Management High Activies Readiness to Engage in Self Management High Activities Anxiety Level Calm Cooperation Cooperative Perception Coherent Interest in Health Problem Asks Questions Education Importance Acknowledges Need Does Patient Smoke tobacco or other No substances Smoking Status Never smoker Is Patient Diabetic No Functional Assessment Recent Decline in Ability to Perform Denies Any Declines Assistive Device With Patient N/A Culture/Mormon/Permanent Waver Cultural/Mormon Needs that may affect No Treatment Plan Would you allow our hospital journalism professor to No meet you for the purpose of spiritual/ emotional support? Permanent Waver to contact place of anabaptism No Teaching: Wound Center *Welcome to the Wound Center -Person Taught Patient -Teaching Method Discussion -Response to teaching Verbalize Understanding (a) 1 - + 2 - - WC - Nurse 1 - General Ulcer Measurement Start: 11/27/24 13:13 Freq: Status: Active Protocol: Activity Type Activity Date Activity User E-sign Co-sign Detail Recorded Client Recorded Date Recorded By Document 11/27/24 13:15 CP [id number] 11/27/24 13:37 CP Document 12/03/24 09:16 TS [id number] 12/03/24 09:27 TS Document 12/04/24 13:23 TS [id number] 12/04/24 13:30 TS 11/27/24 12/03/24 12/04/24 13:15 09:16 13:23 Wound Center Nurse 1 1. left malone -Combined with other wound No -Current Size (cm) - Length 0.5 0.5 0.4 -Current Size (cm) - Width 0.7 0.4 0.4 -Current Size (cm) - Depth 0.1 0.1 0.1 -Total Square Cm 0.35 0.20 0.16 -Date of Last Picture (Recall this 12/04/24 field) -Photo Taken Yes Yes Yes -Epithelialization Small 1-33% -Tunneling No No -Undermining/Tunneling No No -Circular Undermining No No -Exudate Amt Small Small None Present -Exudate Type Serosanguineous Serosanguineous -Wound Margin Flat & Intact Well Defined, Distinct, Not Attached Outline Attached -Granulation Amt None Present (0 Medium (34-66%) %) -Granulation Quality [place] -Slough/Fibrin Yes No -Necrosis Amt Large (67-100%) None Present (0 %) -Necrotic Tissue Type Adherent Slough -Structure Exposed N/A None/Limited to None/Limited to Skin Breakdown Skin Breakdown -Texture (Jen-wound Skin Appearance) No Abnormality Assessed Assessed -Moisture (Jen-wound Skin Appearance) No Abnormality Assessed Assessed -Color (Jen-wound Skin Appearance) No Abnormality Assessed Assessed -Temperature (Jen-wound Skin No Abnormality No Abnormality No Abnormality Appearance) (Pt Warm) (Pt Warm) (Pt Warm) -Tenderness on Palpation (Jen-wound No No No Skin Appearance) -Ulcer Cleansing Rinsed/ Rinsed/ Rinsed/ Irrigated with Irrigated with Irrigated with Saline Saline Saline -Foul Odor after Cleansing No No No -Anesthetic Used 5% Lidocaine 5% Lidocaine Gel Gel Lower Limb Edema Present No Left Calf (cm) 40 40 Left Ankle (cm) 23.5 23.5 WC - Nurse 2 - General Ulcer CM Notes Start: 11/27/24 13:13 Freq: Status: Active Protocol: Activity Type Activity Date Activity User E-sign Co-sign Detail Recorded Client Recorded Date Recorded By Document 11/27/24 13:50 [id number] 11/27/24 14:00 GM Document 12/04/24 13:36 [id number] 12/04/24 13:39 GM 11/27/24 12/04/24 13:50 13:36 Wound Center Nurse 2 1. left malone -Time 13:50 13:38 -Correct Patient Yes Yes -Correct Side, Site, Position Yes Yes -Correct Procedure No No -Procedure Performed No No -Post Debridement (cm) - Length 0.5 0.4 -Post Debridement (cm) - Width 0.5 0.4 -Post Debridement (cm) - Depth 0.1 0.1 -Total Square (Post) (cm) 0.25 0.16 -Tunneling No No -Undermining/Tunneling No No -Circular Undermining No No -Wound/Ulcer Outcome Not Healed Not Healed -Ulcer Cleansing Not Cleansed Rinsed/ Irrigated with Saline -Foul Odor after Cleansing No No -Bioengineered Tissue No No -Bleeding Controlled with NA NA -Offloading No Pain Scale: 0-10 Numeric Is Patient Pain Free? Yes Yes - Nurse 3 - General Ulcer D/C NN Start: 11/27/24 13:13 Freq: Status: Active Protocol: Activity Type Activity Date Activity User E-sign Co-sign Detail Recorded Client Recorded Date Recorded By Document 11/27/24 14:22 [id number] 11/27/24 14:23 CP Document 12/04/24 13:56 [id number] 12/04/24 13:57 11/27/24 12/04/24 14:22 13:56 Wound Care Center Nurse 3 1. left malone -Ulcer Cleansing Rinsed/ Not Cleansed Irrigated with Saline -Foul Odor after Cleansing No No -Primary Dressing Applied C Hydrogel NonAdherent Contact Layer -Primary Dressing Covered/Secured with Dry Gauze, Dry Gauze, Secured with Secured with Tape Tape -Other Covering adaptic -Hydrogel 1 LLE -Lotion applied to leg before No compression wrap -Tubular Bandage Double Layer Double Layer -Size of Tubigrip Used Size D Size D -Size D ($) 2 2 Pain Scale: 0-10 Numeric Is Patient Pain Free? Yes Yes - Visit Discharge Discharge Condition Stable Stable Ambulatory Status Ambulatory Transportation Private Auto Private Auto Clinical Summary of Care Provided Yes Charges/Coding Visit Charges Office Visits / Consults: 30991 OV L3 Est 20min Assessment/Plan Assessment/Plan (1) Venous stasis ulcer of calf with fat layer exposed with varicose veins: CODE(S): I83.002 - Varicose veins of unspecified lower extremity with ulcer of calf; L97.202 - Non-pressure chronic ulcer of unspecified calf with fat layer exposed QUALIFIERS: Laterality: left Qualified Code(s): I83.022 - Varicose veins of left lower extremity with ulcer of calf; L97.222 - Non- pressure chronic ulcer of left calf with fat layer exposed (2) Venous hypertension, chronic, with ulcer and inflammation: CODE(S): I87.339 - Chronic venous hypertension (idiopathic) with ulcer and inflammation of unspecified lower extremity QUALIFIERS: Laterality: left Qualified Code(s): I87.332 - Chronic venous hypertension (idiopathic) with ulcer and inflammation of left lower extremity (3) Varicose veins, lower extremity, with inflammation, ulcerated: CODE(S): I83.209 - Varicose veins of unspecified lower extremity with both ulcer of unspecified site and inflammation; L97.909 - Non-pressure chronic ulcer of unspecified part of unspecified lower leg with unspecified severity QUALIFIERS: Laterality: left Lower extremity ulceration location: calf Non-pressure ulcer stage: with fat layer exposed Qualified Code(s): I83.222 - Varicose veins of left lower extremity with both ulcer of calf and inflammation; L97.222 - Non-pressure chronic ulcer of left calf with fat layer exposed (4) Chronic venous insufficiency: CODE(S): I87.2 - Venous insufficiency (chronic) (peripheral) (5) Exertional dyspnea: CODE(S): R06.09 - Other forms of dyspnea (6) Hypertension: CODE(S): I10 - Essential (primary) hypertension (7) Osteoarthritis: CODE(S): M19.90 - Unspecified osteoarthritis, unspecified site (8) History of cataract extraction: CODE(S): Z98.49 - Cataract extraction status, unspecified eye (9) History of total left knee replacement: CODE(S): Z96.652 - Presence of left artificial knee joint (10) History of tonsillectomy: CODE(S): Z90.89 - Acquired absence of other organs (11) History of rotator cuff surgery: CODE(S): Z98.890 - Other specified postprocedural states PLAN: Plan This is a generally healthy and active 64-year-old male who presented with an open ulceration on the left pretibial surface, relating several recent episodes of spontaneous bleeding from the site. Based upon the patient's history and presenting manifestations, it appears as though this ulceration is due to chronic venous hypertension with inflammation and ulceration. By physical examination, there is a very large, prominent superficial varicosity in the immediate vicinity of the ulceration, suggesting high pressure within the venous system at this site, and likely responsible for the ulceration. It is suspected that the superficial vein has eroded through the dermal and epidermal layers, resulting in an ulceration, with recent episodes of spontaneous bleeding. As a result, debridement has not been performed, due to concerns regarding the potential for significant bleeding. A lengthy discussion has been undertaken with the patient regarding the appropriate measures in the management of this suspected high-pressure venous ulceration. Conservative measures are to be continued. These are to include leg elevation as much as possible, during both daytime and nighttime hours. Leg elevation is to be to heart level, or higher. The patient has been encouraged to continue sleeping on a flat mattress at [facility]. His legs are to be elevated during daytime hours as well. Prolonged idle sitting has been discouraged. Activity/ambulation has been encouraged. We are to continue the use of collagen hydrogel and Adaptic topically to the ulceration on a daily basis. The patient has been provided the product and instructions in the appropriate means of application. Compression is to continue by means of a double Tubigrip compression sleeve, which is to be donned on a daily basis. With conservative measures alone, the ulceration has a used in size significantly within the last week. Due to concerns regarding an underlying high-pressure varicose vein, debridements have been deferred thus far. Ultimately, the patient will benefit from graduated compression stockings of at least 20 to 30 mmHg for long-term use. 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 In addition, an incompetent accessory saphenous vein is noted in the left mid-thigh which coalesces with the great saphenous vein below the knee. Two incompetent gas transfer operator veins are also noted in the left calf. The implications of these findings have been discussed with the patient in detail. It is felt that a venous ablation procedure and/or injection sclerotherapy may benefit the patient as a means of decreasing the high venous pressure in the region of his venous ulceration. A referral for consultation with Dr. Rob Bui, Vascular Surgeon, will be made. Finally, the patient has been instructed to apply manual pressure and to elevate his leg should further bleeding episodes occur in the future. The patient is to follow-up for reevaluation in 1 week. Total time: 25 minutes
--- NOTE | 2024-12-05 11:40 | WC ---
PHOTO-LEFT [id number] 12/04/24
--- NOTE | 2024-12-05 11:44 | WC ---
PHOTO-LEFT [id number] 12/04/24
== END 2024-12-06 23:59 | disposition home or self-care (01) ==
LOC: WC 13:30
PROVIDERS: PCP Nurse Practitioner Family; Referring Provider Specialist; Visit Provider Surgery
DX: I87.332 Chronic venous hypertension (idiopathic) with ulcer and inflammation of left lower extremity (principal); L97.222 Non-pressure chronic ulcer of left calf with fat layer exposed; I87.2 Venous insufficiency (chronic) (peripheral); R06.09 Other forms of dyspnea; G62.9 Polyneuropathy, unspecified; I73.9 Peripheral vascular disease, unspecified; M19.90 Unspecified osteoarthritis, unspecified site; I10 Essential (primary) hypertension; Z98.49 Cataract extraction status, unspecified eye; Z96.652 Presence of left artificial knee joint; Z90.89 Acquired absence of other organs
CPT/HCPCS: 93970; 99213; G0463

== ENCOUNTER 2024-12-31 09:30 | Outpatient (RCR) | payer MEDICARE, OTHER, SELFPAY ==
[2024-12-17 09:19] VITALS: BP 180/98; PULSE 96; RESP 17; TEMP 35.9
--- NOTE | 2024-12-17 15:44 | PCM.WC.HP ---
History of Present Illness Date of Service: 12/17/24 Chief Complaint: Chronic venous hypertension with inflammation and ulceration?left lower extremity History of Wound: This is a 64-year-old male who presented with an open ulceration on the left pretibial surface, and a history of recent episodes of spontaneous bleeding from the site. The patient denied a history of deep vein thrombosis. He also denied a history of significant swelling in his lower extremities. He indicates that the episodes of bleeding have typically occurred after a hot shower. He denies trauma to the area. He is active. He claims to sleep on a flat mattress at night. 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 [facility]LY [facility] Medical History Varicose veins, lower extremity, with inflammation, ulcerated Venous hypertension, chronic, with ulcer and inflammation Chronic venous insufficiency Venous stasis ulcer of calf with fat layer exposed with varicose veins Osteoarthritis History of hypertension Home Medications ?Medication ?Instructions ?Recorded ?Last Taken ?Type hydrochlorothiazide 25 mg tablet 25 mg PO DAILY 05/16/18 Unknown History losartan 50 mg tablet 50 mg PO DAILY #30 tabs 06/05/22 Unknown Rx terbinafine HCl 250 mg tablet 250 mg PO DAILY 11/27/24 Unknown History metoprolol tartrate 25 mg tablet 50 mg PO BID 12/18/24 Unknown History Allergy/AdvReac Type Severity Reaction Status Date / Time No Known Allergies Allergy Verified 12/18/24 10:17 Family History Other Breast cancer CVA (cerebral vascular accident) Cancer Hypertension Thyroid disorder Surgical History History of rotator cuff surgery History of tonsillectomy History of total left knee replacement History of cataract extraction Social History Smoking Status: Never smoker Vital Signs Vital Signs Vital Signs: 12/17/24 09:19 Temperature 96.7 F L Temperature Source Temporal Pulse Rate 96 Respiratory Rate 17 Blood Pressure 180/98 H Blood Pressure Mean 125 Blood Pressure Source Monitor Blood Pressure Position Sitting Blood Pressure Location Left Arm Oxygen Delivery Method Room Air Physical Exam Const alert, oriented x3, no apparent distress, no limitations, healthy appearing and well nourished Constitutional Narrative: The patient's BMI is 33.4. General Appearance: cooperative, comfortable, well kempt and well developed Orientation / Consciousness: awake, oriented to person, oriented to place and oriented to time Exam Limitations: no limitations HEENT normocephalic and head/scalp atraumatic Head and Scalp: normal to inspection, normocephalic and atraumatic Face and Sinus: normal facial exam Nose: external nose normal External Ear: external ears normal Eyes EOMs intact bilaterally General Eye: normal appearance of both eyes Alignment: alignment normal Neck full ROM Resp normal respiratory effort, normal air movement, no retractions and no use of accessory muscles Effort and Inspection: able to speak in complete sentences Extremity no calf tenderness General Extremity: Negative for clubbing or cyanosis Skin Wound Narrative: An open ulceration is noted on the pretibial surface of the left lower extremity. Dimensions are documented elsewhere. It has decreased in size significantly since the patient's last visit, 1 week ago. There is no active bleeding at this time. It appears full-thickness, extending through all layers of the dermis and into the subcutaneous tissues. Of note, there is a very large, prominent superficial varicosity immediately above the ulceration, and appearing to lead directly to the ulceration itself. No significant swelling or edema are noted in the patient's left lower extremity. Rubio phlebectatica is noted on the medial aspect of the left foot. Neuro oriented x3, CN's II-XII intact bilaterally, moves all extremities, no focal motor deficits and no sensory deficits noted Sensorium / Orientation: awake, alert, oriented to person, oriented to place and oriented to time Speech: speech normal Psych Appearance: grossly normal and appropriate Attitude: calm Activity / Motor Behavior: appropriate eye contact Speech: normal speech Mood & Affect: euthymic mood Thought Process: normal thought process Thought Content: normal thought content Attention / Concentration: attention grossly intact Debridement Note Debridement Note No debridement was completed: No debridement was completed today Post-Debridement Measurements and Additional Note: Post-Debridement Measurements/Treatment WC - Nurse 1 - General Ulcer Assessment Start: 12/17/24 09:19 Freq: Status: Active Protocol: DANNI Activity Type Activity Date Activity User E-sign Co-sign Detail Recorded Client Recorded Date Recorded By Document 12/17/24 09:19 [id number] 12/17/24 09:25 12/17/24 09:19 - Today's Visit Information Type of service Initial Visit Arrival Mode Ambulatory Patient Identification Verified (Name & Yes ) Patient Requires Transmission-Based No Precautions Safety Precautions Fall Prevention Vital Signs Temperature (97.8 F-99.1 F) 96.7 F L Temperature Source Temporal Pulse Rate (60-100) 96 Pulse Location Monitor Respiratory Rate (12-18) 17 Respiratory rate source Observation Oxygen Delivery Method Room Air Blood Pressure (90/60-120/80) 180/98 H Blood Pressure Mean 125 Source Monitor Position Sitting Blood Pressure Location Left Arm History Since Last Visit- (Skip if this is Patient's initial visit) Have you changed medications since your No last visit? Any new allergies or adverse reactions No Had a fall/change in ADL's that may No increase risk of falls Signs or symptoms of abuse and/or No neglect since last visit Have you been in the hospital since your No last visit? Has dressing in place as prescribed Yes Has compression in place as prescribed Yes Has offloadiing in place as prescribed N/A Experienced any changes in pain level or No management Left Footwear Regular Shoe Right Footwear Regular Shoe Pain Scale: 0-10 Numeric Is Patient Pain Free? Yes - Nurse 1 - General Ulcer Measurement Start: 12/17/24 09:19 Freq: Status: Active Protocol: Activity Type Activity Date Activity User E-sign Co-sign Detail Recorded Client Recorded Date Recorded By Document 12/17/24 09:19 [id number] 12/17/24 09:25 12/17/24 09:19 Wound Center Nurse 1 1. left malone -Current Size (cm) - Length 0.1 -Current Size (cm) - Width 0.1 -Current Size (cm) - Depth 0.1 -Total Square Cm 0.01 -Date of Last Picture (Recall this 12/17/24 field) -Photo Taken Yes -Tunneling No -Circular Undermining No -Exudate Amt None Present -Wound Margin Distinct, Outline Attached -Granulation Amt Medium (34-66%) -Granulation Quality [place],Red -Slough/Fibrin No -Necrosis Amt None Present (0 %) -Structure Exposed None/Limited to Skin Breakdown -Texture (Jen-wound Skin Appearance) Assessed -Moisture (Jen-wound Skin Appearance) Assessed -Color (Jen-wound Skin Appearance) Assessed -Temperature (Jen-wound Skin No Abnormality Appearance) (Pt Warm) -Tenderness on Palpation (Jen-wound No Skin Appearance) -Ulcer Cleansing Soap and Water -Foul Odor after Cleansing No -Anesthetic Used 5% Lidocaine Gel Lower Limb Edema Present No Point of measurement (cm from the medial 32.5 instep) Point of Measurement (cm from the medial 23 instep) - Nurse 2 - General Ulcer CM Notes Start: 12/17/24 09:19 Freq: Status: Active Protocol: Activity Type Activity Date Activity User E-sign Co-sign Detail Recorded Client Recorded Date Recorded By Document 12/17/24 09:44 DS [id number] 12/17/24 09:45 DS 12/17/24 09:44 Wound Center Nurse 2 1. left malone -Time 09:44 -Correct Patient Yes -Correct Side, Site, Position Yes -Procedure Performed No -Post Debridement (cm) - Length 0.1 -Post Debridement (cm) - Width 0.1 -Post Debridement (cm) - Depth 0.1 -Total Square (Post) (cm) 0.01 -Area of Debridement (cm) - Length 0.1 -Area of Debridement (cm) - Width 0.1 -Total Square (Area) (cm) 0.01 -Wound/Ulcer Outcome Not Healed Pain Scale: 0-10 Numeric Is Patient Pain Free? Yes - Nurse 3 - General Ulcer D/C NN Start: 12/17/24 09:19 Freq: Status: Active Protocol: Activity Type Activity Date Activity User E-sign Co-sign Detail Recorded Client Recorded Date Recorded By Document 12/17/24 09:58 TS [id number] 12/17/24 09:59 TS 12/17/24 09:58 Wound Care Center Nurse 3 1. left malone -Ulcer Cleansing Rinsed/ Irrigated with Saline -Primary Dressing Applied C Hydrogel, NonAdherent Contact Layer -Primary Dressing Covered/Secured with Dry Gauze, Secured with Tape -Hydrogel 1 LLE -Tubular Bandage Double Layer -Size of Tubigrip Used Size E -Size E ($) 2 Treatment Response Procedure Tolerated Well Pain Scale: 0-10 Numeric Is Patient Pain Free? Yes WC - Visit Discharge Discharge Condition Stable Ambulatory Status Ambulatory Transportation Private Auto Medication Reconcilliation completed & No provided to patient/care provider Clinical Summary of Care Provided Yes Charges/Coding Visit Charges Office Visits / Consults: [id number] OV L3 Est 20min Assessment/Plan Assessment/Plan (1) Venous stasis ulcer of calf with fat layer exposed with varicose veins: CODE(S): I83.002 - Varicose veins of unspecified lower extremity with ulcer of calf; L97.202 - Non-pressure chronic ulcer of unspecified calf with fat layer exposed QUALIFIERS: Laterality: left Qualified Code(s): I83.022 - Varicose veins of left lower extremity with ulcer of calf; L97.222 - Non-pressure chronic ulcer of left calf with fat layer exposed (2) Venous hypertension, chronic, with ulcer and inflammation: CODE(S): I87.339 - Chronic venous hypertension (idiopathic) with ulcer and inflammation of unspecified lower extremity QUALIFIERS: Laterality: left Qualified Code(s): I87.332 - Chronic venous hypertension (idiopathic) with ulcer and inflammation of left lower extremity (3) Varicose veins, lower extremity, with inflammation, ulcerated: CODE(S): I83.209 - Varicose veins of unspecified lower extremity with both ulcer of unspecified site and inflammation; L97.909 - Non-pressure chronic ulcer of unspecified part of unspecified lower leg with unspecified severity QUALIFIERS: Laterality: left Lower extremity ulceration location: calf Non-pressure ulcer stage: with fat layer exposed Qualified Code(s): I83.222 - Varicose veins of left lower extremity with both ulcer of calf and inflammation; L97.222 - Non-pressure chronic ulcer of left calf with fat layer exposed (4) Chronic venous insufficiency: CODE(S): I87.2 - Venous insufficiency (chronic) (peripheral) (5) Exertional dyspnea: CODE(S): R06.09 - Other forms of dyspnea (6) Hypertension: CODE(S): I10 - Essential (primary) hypertension (7) Osteoarthritis: CODE(S): M19.90 - Unspecified osteoarthritis, unspecified site (8) History of cataract extraction: CODE(S): Z98.49 - Cataract extraction status, unspecified eye (9) History of total left knee replacement: CODE(S): Z96.652 - Presence of left artificial knee joint (10) History of tonsillectomy: CODE(S): Z90.89 - Acquired absence of other organs (11) History of rotator cuff surgery: CODE(S): Z98.890 - Other specified postprocedural states PLAN: Plan This is a generally healthy and active 64-year-old male who presented with an open ulceration on the left pretibial surface, relating several recent episodes of spontaneous bleeding from the site. Based upon the patient's history and presenting manifestations, it appears as though this ulceration is due to chronic venous hypertension with inflammation and ulceration. By physical examination, there is a very large, prominent superficial varicosity in the immediate vicinity of the ulceration, suggesting high pressure within the venous system at this site, and likely responsible for the ulceration. It is suspected that the superficial vein has eroded through the dermal and epidermal layers, resulting in an ulceration, with recent episodes of spontaneous bleeding. As a result, debridement has not been performed, due to concerns regarding the potential for significant bleeding. A lengthy discussion has been undertaken with the patient regarding the appropriate measures in the management of this suspected high-pressure venous ulceration. Conservative measures are to be continued. These are to include leg elevation as much as possible, during both daytime and nighttime hours. Leg elevation is to be to heart level, or higher. The patient has been encouraged to continue sleeping on a flat mattress at night. His legs are to be elevated during daytime hours as well. Prolonged idle sitting has been discouraged. Activity/ambulation has been encouraged. We are to continue the use of collagen hydrogel and Adaptic topically to the ulceration on a daily basis. The patient has been provided the product and instructions in the appropriate means of application. Compression is to continue by means of a double Tubigrip compression sleeve, which is to be donned on a daily basis. With conservative measures alone, the ulceration has decreased in size significantly within the last several weeks. Due to concerns regarding an underlying high-pressure varicose vein, debridements have been deferred thus far. Ultimately, the patient will benefit from graduated compression stockings of at least 20 to 30 mmHg for long-term use. A prescription for such stockings has been provided. 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 In addition, an incompetent accessory saphenous vein is noted in the left mid-thigh which coalesces with the great saphenous vein below the knee. Two incompetent timber girdler veins are also noted in the left calf. The implications of these findings have been discussed with the patient in detail. It is felt that a venous ablation procedure and/or injection sclerotherapy may benefit the patient as a means of decreasing the high venous pressure in the region of his venous ulceration. A referral for consultation with Dr. Rob Bui, Vascular Surgeon, has been made. Finally, the patient has been instructed to apply manual pressure and to elevate his leg should further bleeding episodes occur in the future. The patient is to follow-up for reevaluation in 2 weeks. Total time: 24 minutes
--- NOTE | 2024-12-18 08:44 | WC ---
PHOTO-LEFT [id number] 12/17/24
[2024-12-31 09:41] VITALS: BP 148/90; PULSE 56; RESP 18; TEMP 35.6
--- NOTE | 2024-12-31 19:17 | PCM.WC.HP ---
History of Present Illness Date of Service: 12/31/24 Chief Complaint: Chronic venous hypertension with inflammation and ulceration?left lower extremity History of Wound: This is a 64-year-old male who presented with an open ulceration on the left pretibial surface, and a history of recent episodes of spontaneous bleeding from the site. The patient denied a history of deep vein thrombosis. He also denied a history of significant swelling in his lower extremities. He indicates that the episodes of bleeding have typically occurred after a hot shower. He denies trauma to the area. He is active. He claims to sleep on a flat mattress at night. 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 [facility] Medical History Varicose veins, lower extremity, with inflammation, ulcerated Venous hypertension, chronic, with ulcer and inflammation Chronic venous insufficiency Venous stasis ulcer of calf with fat layer exposed with varicose veins Osteoarthritis History of hypertension Home Medications ?Medication ?Instructions ?Recorded ?Last Taken ?Type hydrochlorothiazide 25 mg tablet 25 mg PO DAILY 05/16/18 Unknown History losartan 50 mg tablet 50 mg PO DAILY #30 tabs 06/05/22 Unknown Rx terbinafine HCl 250 mg tablet 250 mg PO DAILY 11/27/24 Unknown History metoprolol tartrate 25 mg tablet 50 mg PO BID 12/18/24 Unknown History Allergy/AdvReac Type Severity Reaction Status Date / Time No Known Allergies Allergy Verified 12/18/24 10:17 Family History Other Breast cancer CVA (cerebral vascular accident) Cancer Hypertension Thyroid disorder Surgical History History of rotator cuff surgery History of tonsillectomy History of total left knee replacement History of cataract extraction Social History Smoking Status: Never smoker Vital Signs Vital Signs Vital Signs: 12/31/24 09:41 Temperature 96.0 F L Temperature Source Temporal Pulse Rate 56 L Respiratory Rate 18 Blood Pressure 148/90 H Blood Pressure Mean 109 Blood Pressure Source Monitor Blood Pressure Position Semi-Fowlers Blood Pressure Location Right Arm Physical Exam Const alert, oriented x3, no apparent distress, no limitations, healthy appearing and well nourished Constitutional Narrative: The patient's BMI is 33.4. General Appearance: cooperative, comfortable, well kempt and well developed Orientation / Consciousness: awake, oriented to person, oriented to place and oriented to time Exam Limitations: no limitations HEENT normocephalic and head/scalp atraumatic Head and Scalp: normal to inspection, normocephalic and atraumatic Face and Sinus: normal facial exam Nose: external nose normal External Ear: external ears normal Eyes EOMs intact bilaterally General Eye: normal appearance of both eyes Alignment: alignment normal Neck full ROM Resp normal respiratory effort, normal air movement, no retractions and no use of accessory muscles Effort and Inspection: able to speak in complete sentences Extremity no calf tenderness General Extremity: Negative for clubbing or cyanosis Skin Wound Narrative: The ulceration on the patient's left pretibial surface is now completely healed and epithelialized. There is no sign of infection or cellulitis at the site. A very large, prominent superficial varicosity is noted immediately above the site of the former ulceration. No significant swelling or edema are noted in the patient's left lower extremity. Rubio phlebectatica is noted on the medial aspect of the left foot. Neuro oriented x3, CN's II-XII intact bilaterally, moves all extremities, no focal motor deficits and no sensory deficits noted Sensorium / Orientation: awake, alert, oriented to person, oriented to place and oriented to time Speech: speech normal Psych Appearance: grossly normal and appropriate Attitude: calm Activity / Motor Behavior: appropriate eye contact Speech: normal speech Mood & Affect: euthymic mood Thought Process: normal thought process Thought Content: normal thought content Attention / Concentration: attention grossly intact Debridement Note Debridement Note No debridement was completed: No debridement was completed today (The patient's ulceration is now completely healed and epithelialized.) Charges/Coding Visit Charges Office Visits / Consults: 11772 OV L3 Est 20min Assessment/Plan Assessment/Plan (1) Venous stasis ulcer of calf with fat layer exposed with varicose veins: CODE(S): I83.002 - Varicose veins of unspecified lower extremity with ulcer of calf; L97.202 - Non-pressure chronic ulcer of unspecified calf with fat layer exposed QUALIFIERS: Laterality: left Qualified Code(s): I83.022 - Varicose veins of left lower extremity with ulcer of calf; L97.222 - Non-pressure chronic ulcer of left calf with fat layer exposed (2) Venous hypertension, chronic, with ulcer and inflammation: CODE(S): I87.339 - Chronic venous hypertension (idiopathic) with ulcer and inflammation of unspecified lower extremity QUALIFIERS: Laterality: left Qualified Code(s): I87.332 - Chronic venous hypertension (idiopathic) with ulcer and inflammation of left lower extremity (3) Varicose veins, lower extremity, with inflammation, ulcerated: CODE(S): I83.209 - Varicose veins of unspecified lower extremity with both ulcer of unspecified site and inflammation; L97.909 - Non-pressure chronic ulcer of unspecified part of unspecified lower leg with unspecified severity QUALIFIERS: Laterality: left Lower extremity ulceration location: calf Non-pressure ulcer stage: with fat layer exposed Qualified Code(s): I83.222 - Varicose veins of left lower extremity with both ulcer of calf and inflammation; L97.222 - Non-pressure chronic ulcer of left calf with fat layer exposed (4) Chronic venous insufficiency: CODE(S): I87.2 - Venous insufficiency (chronic) (peripheral) (5) Exertional dyspnea: CODE(S): R06.09 - Other forms of dyspnea (6) Hypertension: CODE(S): I10 - Essential (primary) hypertension (7) Osteoarthritis: CODE(S): M19.90 - Unspecified osteoarthritis, unspecified site (8) History of cataract extraction: CODE(S): Z98.49 - Cataract extraction status, unspecified eye (9) History of total left knee replacement: CODE(S): Z96.652 - Presence of left artificial knee joint (10) History of tonsillectomy: CODE(S): Z90.89 - Acquired absence of other organs (11) History of rotator cuff surgery: CODE(S): Z98.890 - Other specified postprocedural states PLAN: Plan This is a generally healthy and active 64-year-old male who presented with an open ulceration on the left pretibial surface, relating several recent episodes of spontaneous bleeding from the site. As of this current visit, however, the ulceration is now completely healed and epithelialized. Based upon the patient's history and presenting manifestations, it appeared as though this ulceration was due to chronic venous hypertension with inflammation and ulceration. By physical examination, there was a very large, prominent superficial varicosity in the immediate vicinity of the ulceration, suggesting high pressure within the venous system at this site, and likely responsible for the ulceration. It was suspected that the superficial vein, under high pressure, had eroded through the dermal and epidermal layers, resulting in an ulceration, with episodes of spontaneous bleeding. As a result, debridement was not performed, due to concerns regarding the potential for significant bleeding. A lengthy discussion was undertaken with the patient regarding the appropriate measures in the management of this suspected high-pressure venous ulceration. Measures include leg elevation as much as possible, during both daytime and nighttime hours. Leg elevation to heart level, or higher. The patient has been encouraged to continue sleeping on a flat mattress at night. His legs are to be elevated during daytime hours as well. Prolonged idle sitting has been discouraged. Activity/ambulation has been encouraged. Compression is to continue by means of a double Tubigrip compression sleeve, which is to be donned on a daily basis. A prescription for graduated compression stockings of 20 to 30 mmHg compression has been provided, and the patient has been instructed to be fitted and to obtain the stockings at a local medical supply store. 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 In addition, an incompetent accessory saphenous vein is noted in the left mid-thigh which coalesces with the great saphenous vein below the knee. Two incompetent oil separator veins are also noted in the left calf. The implications of these findings have been discussed with the patient in detail. It is felt that a venous ablation procedure and/or injection sclerotherapy may benefit the patient as a means of decreasing the high venous pressure in the region of his venous ulceration. A referral for consultation with Dr. Rob Bui, Vascular Surgeon, has been made. The patient has been seen and evaluated in Dr. Bui's office, and the patient is scheduled for a venous chemical ablation procedure on January 29, 2025. Now that his left lower extremity venous ulceration has healed, he is to be [facility], with follow-up henceforth as needed. Total time: 25 minutes
--- NOTE | 2025-01-01 11:37 | WC ---
PHOTO-LEFT MOHR 12/31/24
== END 2024-12-31 15:45 | disposition home or self-care (01) ==
LOC: WC 09:30
PROVIDERS: PCP Nurse Practitioner Family; Referring Provider Specialist; Visit Provider Surgery
DX: I87.332 Chronic venous hypertension (idiopathic) with ulcer and inflammation of left lower extremity (principal); L97.222 Non-pressure chronic ulcer of left calf with fat layer exposed; I87.2 Venous insufficiency (chronic) (peripheral); Z82.49 Family history of ischemic heart disease and other diseases of the circulatory system; M19.90 Unspecified osteoarthritis, unspecified site; R06.09 Other forms of dyspnea; Z96.652 Presence of left artificial knee joint; Z90.89 Acquired absence of other organs; Z98.49 Cataract extraction status, unspecified eye
CPT/HCPCS: 99213; G0463

== ENCOUNTER → 2024-12-31 | Outpatient (CLI) | payer MEDICARE, OTHER, SELFPAY ==
--- OUTSIDE RECORDS SUMMARY | 2024-12-31 08:23 | XMS RPT_ITS | CCD ---
Author Organization [facility] Care Team Providers Care Coffee Break Attendant Name Role Phone Evin POULTRY FARMER-C, Chelle Primary Care Provider Evin POULTRY FARMER-C, Chelle Attending Provider Evin POULTRY FARMER-C, Chelle Primary Care Physician Evin POULTRY FARMER-C, Chelle Attending Physician [phone] Evin POULTRY FARMER-C, Chelle Referring Provider Evin, Chelle Referring Unavailable Evin, Chelle Primary Care Unavailable Evin, Chelle Attending Unavailable Cristian Arroyo Attending Unavailable Cristian Arroyo Referring Unavailable Evin, Chelle Primary Care Unavailable Evin, Chelle Referring Unavailable Sylvia Rosenthal Attending Unavailable Evin, Chelle Primary Care Unavailable Evin, Chelle Primary Care Unavailable Evin, Chelle Attending Unavailable Evin, Chelle Attending Unavailable Evin, Chelle Referring Unavailable Evin, Chelle Primary Care Unavailable Evin, Chelle Referring Unavailable Evin, Chelle Primary Care Unavailable Evin, Chelle Attending Unavailable Cristian Arroyo Referring Unavailable Evin, Chelle Primary Care Unavailable Jh Kirkland Attending Unavailable Cristian Arroyo Referring Unavailable Evin, Chelle Primary Care Unavailable Jh Kirkland Attending Unavailable Medications Current Medications Medication Drug Class(es) Dates Sig (Normalized) Sig (Original) hydroCHLOROthiazide 25 mg oral tablet (5 sources) Thiazide Diuretic Start: 05-16-2018 take 1 tablet by mouth once daily losartan potassium 50 mg oral tablet (4 sources) Angiotensin 2 Receptor Martina Start: 06-05-2022 take 1 tablet by mouth once daily metoprolol tartrate 25 mg oral tablet (5 sources) beta-Adrenergic Martina Start: 05-17-2018 take 1 tablet by mouth twice daily pantoprazole 40 mg delayed release oral tablet (5 sources) Proton Pump Inhibitor Start: 05-17-2018 take 1 tablet by mouth once daily Problems Problem Classification Problem Date Documented Date Episodic/Chronic Chronic ulcer of skin (2 sources) Non-pressure chronic ulcer of left calf with fat layer exposed; Translations: [Non-pressure chronic ulcer of left calf with fat layer exposed] Onset: 12-13-2024 Chronic Complication of device; implant or graft (1 source) Pain due to internal orthopedic prosthetic devices, implants and grafts, initial encounter; Translations: [Pain due to internal orthopedic prosthetic devices, implants and grafts, initial encounter] Onset: 11-29-2024 Episodic Diabetes mellitus without complication (1 source) Type 2 diabetes mellitus without complications; Translations: [Type 2 diabetes mellitus without complications] Onset: 08-03-2024 Chronic Essential hypertension (11 sources) Hypertensive disorder; Translations: [Essential (primary) hypertension] Onset: 12-13-2024 05-17-2018 Chronic Nonspecific chest pain (10 sources) Chest pain on exertion; Translations: [Chest pain, unspecified] 05-17-2018 Episodic Osteoarthritis (3 sources) Unspecified osteoarthritis, unspecified site; Translations: [Unilateral primary osteoarthritis, left knee] Onset: 12-04-2024 Chronic Other circulatory disease (5 sources) H/O: hypertension; Translations: [Personal history of other diseases of the circulatory system] 06-05-2022 Episodic Other connective tissue disease (2 sources) Presence of left artificial knee joint; Translations: [Presence of left artificial knee joint] Onset: 12-13-2024 Chronic Other diseases of veins and lymphatics (2 sources) Chronic venous hypertension (idiopathic) with ulcer and inflammation of left lower extremity; Translations: [Chronic venous hypertension (idiopathic) with ulcer and inflammation of left lower extremity] Onset: 12-13-2024 Chronic Other diseases of veins and lymphatics (2 sources) Venous insufficiency (chronic) (peripheral); Translations: [Venous insufficiency (chronic) (peripheral)] Onset: 12-13-2024 Episodic Other eye disorders (2 sources) Cataract extraction status, unspecified eye; Translations: [Cataract extraction status, unspecified eye] Onset: 12-13-2024 Episodic Other lower respiratory disease (5 sources) Dyspnea on exertion; Translations: [Other forms of dyspnea] 05-17-2018 Episodic Other lower respiratory disease (2 sources) Other forms of dyspnea; Translations: [Other forms of dyspnea] Onset: 12-13-2024 Episodic Other non-traumatic joint disorders (1 source) Pain in left knee; Translations: [Pain in left knee] Onset: 11-06-2024 Episodic Residual codes; unclassified (2 sources) Acquired absence of other organs; Translations: [Acquired absence of other organs] Onset: 12-13-2024 Episodic Residual codes; unclassified (2 sources) Other specified postprocedural states; Translations: [Other specified postprocedural states] Onset: 12-13-2024 Episodic Varicose veins of lower extremity (4 sources) Varicose veins of left lower extremity with ulcer of calf; Translations: [Varicose veins of left lower extremity with both ulcer of calf and inflammation] Onset: 12-13-2024 Episodic Results Test Name Value Interpretation Reference Range Facility Wound Ctr History AND Physic kati 12-04-2024 Wound Ctr History & Physical [facility] [address] [place] [address] H P Exam - Wound Care 12/04/24 1642 MR#: [id number] Acct: [id number] Name: KESHA IVAN Rep #: [id number] : 1960 64 From: Jh Kirkland MD PCP: SELMA Knight Status:REG RCR Location: History of Present Illness Date of Service: 12/04/24 Chief Complaint: Chronic venous hypertension with inflammation and ulceration???left lower extremity History of Wound: This is a 64-year-old male who presented with an open ulceration on the left pretibial surface, and a history of recent episodes of spontaneous bleeding from the site. The patient denied a history of deep vein thrombosis. He also denied a history of significant swelling in his lower extremities. He indicates that the episodes of bleeding have typically occurred after a hot shower. He denies trauma to the area. He is active. He claims to sleep on a flat mattress at night. 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 [facility] Medical History Varicose veins, lower extremity, with inflammation, ulcerated Venous hypertension, chronic, with ulcer and inflammation Chronic venous insufficiency Venous stasis ulcer of calf with fat layer exposed with varicose veins Osteoarthritis History of hypertension Home Medications ???Medication ???Instructions ???Recorded ???Last Taken ???Type hydrochlorothiazide 25 mg tablet 25 mg PO DAILY 05/16/18 Unknown Hi story metoprolol tartrate 25 mg tablet 25 mg PO BID #60 tabs 05/17/18 Unk nown Rx losartan 50 mg tablet 50 mg PO DAILY #30 tabs 06/05/22 U nknown Rx terbinafine HCl 250 mg tablet 250 mg PO DAILY 11/27/24 Unknown H istory Allergy/AdvReac Type Severity Reaction Status Date / Time No Known Allergies Allergy Verified 11/27/24 13:08 Surgical History History of rotator cuff surgery History of tonsillectomy History of total left knee replacement History of cataract extraction Social History Smoking Status: Never smoker Vital Signs Vital Signs Vital Signs: 12/04/24 13:23 Temperature 97.3 F L Temperature Source Temporal Pulse Rate 73 Respiratory Rate 16 Blood Pressure 146/86 H Blood Pressure Mean 106 Blood Pressure Source Monitor Blood Pressure Location Left Arm Weight Weight: 260 lb Body Mass Index (BMI) 33.3 Physical Exam Const alert, oriented x3, no apparent distress, no limitations, healthy appearing and well nourished Constitutional Narrative: The patient's BMI is 33.4. General Appearance: cooperative, comfortable, well kempt and well developed Orientation / Consciousness: awake, oriented to person, oriented to place and oriented to time Exam Limitations: no limitations HEENT normocephalic and head/scalp atraumatic Head and Scalp: normal to inspection, normocephalic and atraumatic Face and Sinus: normal facial exam Nose: external nose normal External Ear: external ears normal Eyes EOMs intact bilaterally General Eye: normal appearance of both eyes Alignment: alignment normal Neck full ROM Resp normal respiratory effort, normal air movement, no retractions and no use of accessory muscles Effort and Inspection: able to speak in complete sentences Extremity no calf tenderness General Extremity: Negative for clubbing or cyanosis Skin Wound Narrative: An open ulceration is noted on the pretibial surface of the left lower extremity. Dimensions are documented elsewhere. It has decreased in size since the patient's last visit, 1 week ago. It is circular. There is no active bleeding at this time. It appears full-thickness, extending through all layers of the dermis and into the subcutaneous tissues. Of note, there is a very large, prominent superficial varicosity immediately above the ulceration, and appearing to lead directly to the ulceration itself. No significant swelling or edema are noted in the patient's left lower extremity. Rubio phlebectatica is noted on the medial aspect of the left foot. Neuro oriented x3, CN's II-XII intact bilaterally, moves all extremities, no focal motor deficits and no sensory deficits noted Sensorium / Orientation: awake, alert, oriented to person, oriented to place and oriented to time Speech: speech normal Psych Appearance: grossly normal and appropriate Attitude: calm Activity / Motor Behavior: appropriate eye contact Speech: normal speech Mood Affect: euthymic mood Thought Process: normal thought process Thought Content: normal thought content Attention / Concentration: attention grossly intact Debridement Note Debridement Note No debridement was completed: No debridement was completed today Post- (more content not included)... Normal [facility] Bone Scan Three Phaseon 11-07 Bone Scan Three Phase [facility] Imaging Services [address] [place] [address] Bone Scan Three Phase MR#: [id number] Acct: [id number] Name: KESHA IVAN Rep #: [id number] : 1960 M 64 From: Narciso Tejada MD PCP: SELMA Knight Status: REG CLI Study: Bone Scan Three Phase Date of Exam: 11/29/24 Exam# [id number] Ordering Dr: Cristian Arroyo MD PROCEDURE: BONE SCAN THREE PHASE 11/29/2024 REASON FOR EXAM: LEFT KNEE OSTEO TECHNIQUE: Procedure Code: NMBOT Modality: NM Procedure: BONE SCAN THREE PHASE Blood flow, blood pool, and delayed phase imaging of the knees after radiopharmaceutical administration. RADIOPHARMACEUTICAL: 26.0 mCi Technetium-99m MDP IV COMPARISON: Left knee x-ray, 10/15/2024. FINDINGS: Blood flow: There is increased blood flow about the tibial and femoral components of the left knee arthroplasty. Blood pool: There is increased blood pool activity about the tibial and femoral components of the left total knee arthroplasty. Delayed: There is relative increased activity about the tibial component of the left total knee arthroplasty. There is also increased activity to the medial femoral condyle of the right knee. NM/Bone Scan Three Phase IMPRESSION: 1. There is relative increased activity about the tibial component of the left total knee arthroplasty. Review of the recent images of the left knee demonstrate lucency about the tibial component consistent with loosening. Additionally, there is a large hyperdense knee joint effusion suggesting a hemorrhagic component. The degree of activity about the femoral component is felt to be normal. 2. There is increased activity at the medial femoral condyle of the ewiiaapaayp right knee, consistent with significant arthropathy. Reading Location: [place] [address] CC: SELMA Cleary; Dr. Cristian Arroyo MD Switch Foreman: Signed Normal [facility] Venous Duplex US - Benjie Extre [facility] 11-28-2024 Venous Duplex US - Benjie Extrem [facility] [address] [place] [address] Venous Duplex US - Benjie Extrem 11/28/24 1406 MR#: [id number] Acct: [id number] Name: KESHA IVAN Rep #: [id number] : 1960 64 From: Jh Kirkland MD Attending Dr: Dr. Jh Kirkland MD Status: REG RCR Ordering Dr: Jh Kirkland MD Date: 11/28/24 Location: [facility] Sex: M C Admitted: Reason For Study Reason For Study: Ulcer RIGHT LEFT CFV is compressible, spontaneous, phasic, competent CFV is compressible, spontaneous, phasic, competent, and demonstrates normal augmentation. and demonstrates normal augmentation. FV is compressible, spontaneous, phasic, competent FV is compressible, spontaneous, phasic, competent and demonstrates normal augmentation. and demonstrates normal augmentation. POP V is compressible, spontaneous, phasic, competent POP V is compressible, spontaneous, phasic, competent and demonstrates normal augmentation. and demonstrates normal augmentation. T/P Trunk is compressible. T/P Trunk is compressible. PTV is compressible. PTV is compressible. RT PerV is compressible. LT PerV is compressible. SFJ is competent and measures 0.77 cm. SFJ is competent and measures 0.74 cm. GSV proximal thigh measures 0.34 x 0.34 cm. GSV proximal thigh measures 0.47 x 0.51 cm. GSV above knee is competent. GSV above knee is competent. GSV at knee measures 0.36 x 0.37 cm. GSV at knee measures 0.28 x 0.30 cm. GSV below knee is INCOMPETENT for greater than 0.5 GSV below knee is INCOMPETENT for greater than 0.5 seconds. seconds. ASV proximal calf is INCOMPETENT for greater than 0.5 ASV mid thigh is INCOMPETENT for greater than 0.5 seconds and measures 0.33 x 0.34 cm. seconds and measures 0.41 x 0.44 cm. INCOMPETENT information technology consultant noted 20 cm above the medial ASV mid thigh connect GSV mid thigh to GSV prox calf. malleolus. Varicose vein on malone extends from ASV mid thigh at SSV mid calf is competent and measures 0.49 x 0.46 proximal calf. cm. INCOMPETENT perforators noted 11 and 19 cm above the Procedure medial malleolus. This is a venous duplex using B-mode, color flow and SSV mid calf is competent and measures 0.34 x 0.35 spectral Doppler. cm. Exam performed in department. Patient was scanned in reverse Trendelenburg position during reflux assessment. VL/Venous Duplex US - Benjie Extrem Interpretation Summary Deep veins of the lower extremities are bilaterally patent and compressible segmentally. There is no evidence of deep vein thrombosis on either side. Valvular competence appears intact within the proximal deep venous systems bilaterally. The great saphenous veins appear bilaterally patent and compressible segmentally. Sapheno-femoral junctions are bilaterally competent . The right great saphenous vein appears competent above the knee. The right great saphenous vein appears incompetent below the knee. The left great saphenous vein appears competent above the knee. The left great saphenous vein appears incompetent below the knee. Small saphenous veins are patent and competent bilaterally. The accessory saphenous vein in the right proximal calf is incompetent. An incompetent information technology consultant vein is noted in the right calf, located 20 centimeters proximal to the right medial malleolus. An accessory saphenous vein in the left mid-thigh is incompetent, which appears to give rise to varicosities more distally. Incompetent information technology consultant veins are noted in the left calf, located 11 centimeters and 19 centimeters proximal to the left medial malleolus. Ordering Physician: Jh Kirkland Referring Physician: Chelle Cleary Performed By: Jany Healy RVT 11/28/242010 Date Jh Kirkland MD CC: POULTRY FARMER-C Chelle Cleary; Dr. Jh Kirkland MD; Dr. Cristian Arroyo MD Date Dictated: 11/28/241405 Date Transcribed: 11/28/242010 Switch Foreman: Signed Normal [facility] Wound Ctr History AND Physic kati 11-28-2024 Wound Ctr History & Physical [facility] [address] [place] [address] H P Exam - Wound Care 11/28/24 1658 MR#: [id number] Acct: [id number] Name: KESHA IVAN Rep #: [id number] : 1960 64 From: Jh Kirkland MD PCP: SELMA Knight Status:REG RCR Location: [facility] History of Present Illness Date of Service: 11/27/24 Chief Complaint: Chronic venous hypertension with inflammation and ulceration???left lower extremity History of Wound: This is a 64-year-old male who presented with an open ulceration on left pretibial surface, and a history of recent episodes of spontaneous bleeding from the site. The patient denied a history of deep vein thrombosis. He also denied a history of significant swelling in his lower extremities. He indicates that the episodes of bleeding have typically occurred after a hot shower. He denies trauma to the area. He is active. He claims to sleep on a flat mattress at night. 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 [facility] Medical History Varicose veins, lower extremity, with inflammation, ulcerated Venous hypertension, chronic, with ulcer and inflammation Chronic venous insufficiency Venous stasis ulcer of calf with fat layer exposed with varicose veins Osteoarthritis History of hypertension Home Medications ???Medication ???Instructions ???Recorded ???Last Taken ???Type hydrochlorothiazide 25 mg tablet 25 mg PO DAILY 05/16/18 Unknown Hi story metoprolol tartrate 25 mg tablet 25 mg PO BID #60 tabs 05/17/18 Unk nown Rx losartan 50 mg tablet 50 mg PO DAILY #30 tabs 06/05/22 U nknown Rx terbinafine HCl 250 mg tablet 250 mg PO DAILY 11/27/24 Unknown H istory Allergy/AdvReac Type Severity Reaction Status Date / Time No Known Allergies Allergy Verified 11/27/24 13:08 Surgical History History of rotator cuff surgery History of tonsillectomy History of total left knee replacement History of cataract extraction Social History Smoking Status: Never smoker Vital Signs Vital Signs Vital Signs: Weight Weight: 260 lb Body Mass Index (BMI) 33.3 Physical Exam Const alert, oriented x3, no apparent distress, no limitations, healthy appearing and well nourished Constitutional Narrative: The patient's BMI is 33.4. General Appearance: cooperative, comfortable, well kempt and well developed Orientation / Consciousness: awake, oriented to person, oriented to place and oriented to time Exam Limitations: no limitations HEENT normocephalic and head/scalp atraumatic Head and Scalp: normal to inspection, normocephalic and atraumatic Face and Sinus: normal facial exam Nose: external nose normal External Ear: external ears normal Eyes EOMs intact bilaterally General Eye: normal appearance of both eyes Alignment: alignment normal Neck full ROM Resp normal respiratory effort, normal air movement, no retractions and no use of accessory muscles Effort and Inspection: able to speak in complete sentences Extremity no calf tenderness General Extremity: Negative for clubbing or cyanosis Skin Wound Narrative: An open ulceration is noted on the pretibial surface of the left lower extremity. Dimensions are documented elsewhere. It is circular. There is no active bleeding at this time. It appears full- thickness, extending through all layers of the dermis and into the subcutaneous tissues. Of note, there is a very prominent superficial varicosity immediately above the ulceration, and appearing to lead directly to the ulceration itself. No significant swelling or edema are noted in the patient's left lower extremity. Rubio phlebectatica is noted on the medial aspect of the left foot. Neuro oriented x3, CN's II-XII intact bilaterally, moves all extremities, no focal motor deficits and no sensory deficits noted Sensorium / Orientation: awake, alert, oriented to person, oriented to place and oriented to time Speech: speech normal Psych Appearance: grossly normal and appropriate Attitude: calm Activity / Motor Behavior: appropriate eye contact Speech: normal speech Mood Affect: euthymic mood Thought Process: normal thought process Thought Content: normal thought content Attention / Concentration: attention grossly intact Debridement Note Debridement Note No debridement was completed: No debridement was completed today Post-Debridement Measurements and Additional Note: Post-Debridement Measurements/Treatment WC - Nurse 1 - General Ulcer Assessment Start: 11/27/24 13:13 Freq: Status: Active Protocol: DANNI Activity Type Activity Date Activity User E-sign Co-sign Detail Recorded Client Recorded Date Recorded By Document 11/27/24 (more content not included)... Normal [facility] CBC W/Diff, Automatedon 10-0 Absolute Lymph 1.23 X10 3/uL Normal 0.83-4.51 [facility] Comment on above: Performed By: #### L [id number], L101.9900, L100.0100 #### [facility] [address] [place], [address] Absolute Neut 4.4 X10 3/uL Normal 2.0-7.7 [facility] Comment on above: Performed By: #### L [id number], L101.9900, L100.0100 #### [facility] [address] [place], [address] Basophils/100 WBC (Bld) 0.8 % Normal 0-1 [facility] Comment on above: Performed By: #### L [id number], L101.9900, L100.0100 #### [facility] [address] [place], [address] Eosinophils/100 WBC (Bld) 3.3 % Normal 0-5 [facility] Comment on above: Performed By: #### L [id number], L101.9900, L100.0100 #### [facility] [address] [place], [address] Erythrocyte distribution width (RBC) [Ratio] 12.6 % Normal 11.6-14.6 [facility] Comment on above: Performed By: #### L [id number], L101.9900, L100.0100 #### [facility] [address] [place], [address] Hematocrit (Bld) [Volume fraction] 45.9 % Normal 40-54 [facility] Comment on above: Performed By: #### L [id number], L101.9900, L100.0100 #### [facility] [address] [place], [address] Hemoglobin (Bld) [Mass/Vol] 15.6 g/dL Normal 13.0-16.5 [facility] Comment on above: Performed By: #### L [id number], L101.9900, L100.0100 #### [facility] [address] [place], [address] IG% 0.500 Normal 0.0-0.9 [facility] Comment on above: Result Comment: IG% - Immature Granulocytes (promyelocytes, myelocytes and metamyelocytes) > 1% indicates that a LEFT SHIFT is Present. Performed By: #### L [id number], L101.9900, L100.0100 #### [facility] [address] [place], [address] Lymphocytes/100 WBC (Bld) 18.6 % Low 19-41 [facility] Comment on above: Performed By: #### L [id number], L101.9900, L100.0100 #### [facility] [address] [place], [address] MCH (RBC) [Entitic mass] 29.9 pg Normal 27.0-32.0 [facility] Comment on above: Performed By: #### L [id number], L101.9900, L100.0100 #### [facility] [address] [place], [address] MCHC (RBC) [Mass/Vol] 34.0 g/dL Normal 32-36 [facility] Comment on above: Performed By: #### L [id number], L101.9900, L100.0100 #### [facility] [address] [place], [address] MCV (RBC) [Entitic vol] 88.1 fL Normal 80-94 [facility] Comment on above: Performed By: #### L [id number], L101.9900, L100.0100 #### [facility] [address] [place], [address] Monocytes/100 WBC (Bld) 9.5 % Normal 0-10 [facility] Comment on above: Performed By: #### L [id number], L101.9900, L100.0100 #### [facility] [address] [place], [address] Neutrophils/100 WBC (Bld) 67.3 % Normal 47-70 [facility] Comment on above: Performed By: #### L [id number], L101.9900, L100.0100 #### [facility] [address] [place], [address] Nucleated RBC (Bld) [#/Vol] 0 10*3/uL Normal 0-5 [facility] Comment on above: Performed By: #### L [id number], L101.9900, L100.0100 #### [facility] [facility] [address] [place], [address] Platelet mean volume (Bld) [Entitic vol] 9.5 fL Normal 6.2-12.0 [facility] Comment on above: Performed By: #### L 501.6710, L101.9900, L100.0100 #### [facility] [address] [place], [address] Platelets (Bld) [#/Vol] 251 10*3/uL Normal 150-450 [facility] Comment on above: Performed By: #### L 501.6710, L101.9900, L100.0100 #### [facility] [address] [place], [address] RBC (Bld) [#/Vol] 5.21 10*6/uL Normal 4.6-6.2 [facility] Comment on above: Performed By: #### L 501.6710, L101.9900, L100.0100 #### [facility] [address] [place], [address] RDW SD 41.0 fl Normal 35.1-43.9 [facility] Comment on above: Performed By: #### L 501.6710, L101.9900, L100.0100 #### [facility] [address] [place], [address] WBC (Bld) [#/Vol] 6.6 10*3/uL Normal 4.4-11.0 [facility] Comment on above: Performed By: #### L 501.6710, L101.9900, L100.0100 #### [facility] [address] [place], [address] CRPon 11-14-2024 C-REACTIVE PROT < 3.00 Normal 0.0-3.0 [facility] Comment on above: Performed By: #### L 501.6710, L101.9900, L100.0100 #### [facility] [address] [place], [address] Erythrocyte Sed Rateon 11-14 SED RATE 2 mm/hr Normal 0-20 [facility] Comment on above: Performed By: #### L 501.6710, L101.9900, L100.0100 #### [facility] [address] [place], [address] Knee 4 or More Viewson 10-15 Knee 4 or More Views [facility] [address] [place] [address] Knee 4 or More Views MR#: [id number] Acct: [id number] Name: KESHA IVAN Rep #: [id number] : [id number] M 64 From: Asa Frye MD PCP: SELMA Knight Status: REG CLI Study: Knee 4 or More Views Date of Exam: 10/15/24 Exam# [id number] Ordering Dr: Chelle Cleary PROCEDURE: KNEE 4 OR MORE VIEWS 10/15/2024 REASON FOR EXAM: PAIN IN KNEE TECHNIQUE: Procedure Code: RADKN Modality: DX Procedure: KNEE 4 OR MORE VIEWS Laterality: FINDINGS: No evidence of acute fracture or dislocation. Left knee arthroplasty. Left knee joint effusion. RAD/Knee 4 or More Views IMPRESSION: Intact left knee arthroplasty. Joint effusion. Reading Location: [address] CC: [employer]-C Chelle Cleary Switch Foreman: Signed Normal [facility] Fructosamineon 08-02-2024 FRUCTOSAMINE 258 umol/L Normal 0-285 [facility] Comment on above: Result Comment: Publ ished reference interval for apparently healthy subjects between age 20 and 60 is 205 - 285 umol/L and in a poorly controlled diabetic population is 228 - 563 umol/L with a mean of 396 umol/L. Performed at: [address] [id number] Team Assistant: Ricky Cooney PhD, Phone: [phone] Performed By: #### L 3400.0100 ####[facility] [address] [place], [address] CBC W/Diff, Automatedon 12-0 Absolute Lymph 1.42 X10 3/uL Normal 0.83-4.51 [facility] Comment on above: Performed By: #### L 100.0100, L501.9910, L500.4050, L500.4100 #### [facility] [address] [place], [address] Absolute Neut 5.0 X10 3/uL Normal 2.0-7.7 [facility] Comment on above: Performed By: #### L 100.0100, L501.9910, L500.4050, L500.4100 #### [facility] [address] [place], [address] Basophils/100 WBC (Bld) 0.9 % Normal 0-1 [facility] Comment on above: Performed By: #### L 100.0100, L501.9910, L500.4050, L500.4100 #### [facility] [address] [place], [address] Eosinophils/100 WBC (Bld) 3.3 % Normal 0-5 [facility] Comment on above: Performed By: #### L 100.0100, L501.9910, L500.4050, L500.4100 #### [facility] [address] [place], [address] Erythrocyte distribution width (RBC) [Ratio] 12.5 % Normal 11.6-14.6 [facility] Comment on above: Performed By: #### L 100.0100, L501.9910, L500.4050, L500.4100 #### [facility] [address] [place], [address] Hematocrit (Bld) [Volume fraction] 50.7 % Normal 40-54 [facility] Comment on above: Performed By: #### L 100.0100, L501.9910, L500.4050, L500.4100 #### [facility] [address] [place], [address] Hemoglobin (Bld) [Mass/Vol] 16.5 g/dL Normal 13.0-16.5 [facility] Comment on above: Performed By: #### L 100.0100, L501.9910, L500.4050, L500.4100 #### [facility] [address] [place], [address] IG% 0.700 Normal 0.0-0.9 [facility] Comment on above: Result Comment: IG% - Immature Granulocytes (promyelocytes, myelocytes and metamyelocytes) > 1% indicates that a LEFT SHIFT is Present. Performed By: #### L 100.0100, L501.9910, L500.4050, L500.4100 #### [facility] [address] [place], [address] Lymphocytes/100 WBC (Bld) 19.0 % Normal 19-41 [facility] Comment on above: Performed By: #### L 100.0100, L501.9910, L500.4050, L500.4100 #### [facility] [address] [place], [address] MCH (RBC) [Entitic mass] 28.8 pg Normal 27.0-32.0 [facility] Comment on above: Performed By: #### L 100.0100, L501.9910, L500.4050, L500.4100 #### [facility] [address] [place], [address] MCHC (RBC) [Mass/Vol] 32.5 g/dL Normal 32-36 [facility] Comment on above: Performed By: #### L 100.0100, L501.9910, L500.4050, L500.4100 #### [facility] [address] [place], [address] MCV (RBC) [Entitic vol] 88.5 fL Normal 80-94 [facility] Comment on above: Performed By: #### L 100.0100, L501.9910, L500.4050, L500.4100 #### [facility] [address] [place], [address] Monocytes/100 WBC (Bld) 9.5 % Normal 0-10 [facility] Comment on above: Performed By: #### L 100.0100, L501.9910, L500.4050, L500.4100 #### [facility] [address] [place], [address] Neutrophils/100 WBC (Bld) 66.6 % Normal 47-70 [facility] Comment on above: Performed By: #### L 100.0100, L501.9910, L500.4050, L500.4100 #### [facility] [address] [place], [address] Nucleated RBC (Bld) [#/Vol] 0 10*3/uL Normal 0-5 [facility] Comment on above: Performed By: #### L 100.0100, L501.9910, L500.4050, L500.4100 #### [facility] [address] [place], [address] Platelet mean volume (Bld) [Entitic vol] 9.2 fL Normal 6.2-12.0 [facility] Comment on above: Performed By: #### L 100.0100, L501.9910, L500.4050, L500.4100 #### [facility] [address] [place], [address] Platelets (Bld) [#/Vol] 228 10*3/uL Normal 150-450 [facility] Comment on above: Performed By: #### L 100.0100, L501.9910, L500.4050, L500.4100 #### [facility] [address] [place], [address] RBC (Bld) [#/Vol] 5.73 10*6/uL Normal 4.6-6.2 [facility] Comment on above: Performed By: #### L 100.0100, L501.9910, L500.4050, L500.4100 #### [facility] [address] [place], [address] RDW SD 40.2 fl Normal 35.1-43.9 [facility] Comment on above: Performed By: #### L 100.0100, L501.9910, L500.4050, L500.4100 #### [facility] [address] [place], [address] WBC (Bld) [#/Vol] 7.5 10*3/uL Normal 4.4-11.0 [facility] Comment on above: Performed By: #### L 100.0100, L501.9910, L500.4050, L500.4100 #### [facility] [address] [place], [address] Comprehensive Metabolic Prof ilon 01-12-2024 Albumin [Mass/Vol] 4.0 g/dL Normal 3.2-5.0 [facility] Comment on above: Performed By: #### L 100.0100, L501.9910, L500.4050, L500.4100 #### [facility] [address] [place], [address] Albumin/Globulin [Mass ratio] 1.2 {ratio} Normal 0.9-2.4 [facility] Comment on above: Performed By: #### L 100.0100, L501.9910, L500.4050, L500.4100 #### [facility] [address] [place], [address] ALK P 73 U/L Normal 45-117 [facility] Comment on above: Performed By: #### L 100.0100, L501.9910, L500.4050, L500.4100 #### [facility] [address] [place], [address] ALT [Catalytic activity/Vol] 31 U/L Normal 16-61 [facility] Comment on above: Performed By: #### L 100.0100, L501.9910, L500.4050, L500.4100 #### [facility] [address] [place], [address] AST [Catalytic activity/Vol] 20 U/L Normal 15-37 [facility] Comment on above: Performed By: #### L 100.0100, L501.9910, L500.4050, L500.4100 #### [facility] [address] [place], [address] Bilirubin [Mass/Vol] 1.00 mg/dL Normal 0.20-1.00 [facility] Comment on above: Result Comment: For patients on eltrombopag therapy, use of Dimension [place] TBIL is not recommended. Performed By: #### L 100.0100, L501.9910, L500.4050, L500.4100 #### [facility] [address] [place], [address] BUN/CRE 18.8 RATIO Normal 10-20 [facility] Comment on above: Performed By: #### L 100.0100, L501.9910, L500.4050, L500.4100 #### [facility] [address] [place], [address] CA,Total 9.3 mg/dL Normal 8.5-10.1 [facility] Comment on above: Performed By: #### L 100.0100, L501.9910, L500.4050, L500.4100 #### [facility] [address] [place], [address] Chloride [Moles/Vol] 102 mmol/L Normal 98-107 [facility] Comment on above: Performed By: #### L 100.0100, L501.9910, L500.4050, L500.4100 #### [facility] [address] [place], [address] CO2 [Moles/Vol] 29.0 mmol/L Normal 21.0-32.0 [facility] Comment on above: Performed By: #### L 100.0100, L501.9910, L500.4050, L500.4100 #### [facility] [address] [place], [address] Creatinine [Mass/Vol] 1.28 mg/dL Normal 0.70-1.30 [facility] Comment on above: Result Comment: The validity of the calculated GFR GFRAA in patients over 70 years has not been determined. Clinical correlation is essential. Performed By: #### L 100.0100, L501.9910, L500.4050, L500.4100 #### [facility] [address] [place], [address] EST GFR - AA 72 mL/min Normal >60 [facility] Comment on above: Result Comment: Afri can Burmese GFR Calc Performed By: #### L 100.0100, L501.9910, L500.4050, L500.4100 #### [facility] [address] [place], [address] GAP 6 Normal 5-15 [facility] Comment on above: Performed By: #### L 100.0100, L501.9910, L500.4050, L500.4100 #### [facility] [address] [place], [address] GFR/1.73 sq M.predicted among non-blacks MDRD (S/P/Bld) [Vol rate/Area] 60 mL/min/{1.73_m2} Normal >60 [facility] Comment on above: Result Comment: Non- GFR Calc Performed By: #### L 100.0100, L501.9910, L500.4050, L500.4100 #### [facility] [address] [place], [address] Globulin (S) [Mass/Vol] 3.4 g/dL Normal 2.2-4.2 [facility] Comment on above: Performed By: #### L 100.0100, L501.9910, L500.4050, L500.4100 #### [facility] [address] [place], [address] Glucose [Mass/Vol] 168 mg/dL High 74-106 [facility] Comment on above: Result Comment: Fast ing Glucose result greater than or equal to 126 mg/dL suggests DIABETES MELLITUS per A.D.A. criteria. Performed By: #### L 100.0100, L501.9910, L500.4050, L500.4100 #### [facility] [address] [place], [address] Potassium [Moles/Vol] 4.3 mmol/L Normal 3.5-5.1 [facility] Comment on above: Performed By: #### L 100.0100, L501.9910, L500.4050, L500.4100 #### [facility] [address] [place], [address] Sodium [Moles/Vol] 137 mmol/L Normal 136-145 [facility] Comment on above: Performed By: #### L 100.0100, L501.9910, L500.4050, L500.4100 #### [facility] [address] [place], [address] T PROT 7.4 g/dL Normal 6.4-8.2 [facility] Comment on above: Performed By: #### L 100.0100, L501.9910, L500.4050, L500.4100 #### [facility] [address] [place], [address] Urea nitrogen [Mass/Vol] 24 mg/dL High 7-18 [facility] Comment on above: Performed By: #### L 100.0100, L501.9910, L500.4050, L500.4100 #### [facility] [address] [place], [address] Lipid Profileon 01-12-2024 Cholesterol [Mass/Vol] 214 mg/dL High 200 [facility] Comment on above: Result Comment: <200 mg/dL Desirable 200-240 mg/dL Borderline >240 mg/dL High Risk Performed By: #### L 100.0100, L501.9910, L500.4050, L500.4100 ####[facility] [address] [place], [address] Cholesterol in HDL [Mass/Vol] 41 mg/dL Normal [facility] Comment on above: Result Comment: The drugs N-Acetylcysteine and Metamizole may falsely depress this assay. Reference Range HDL <40 mg/dL Low HDL Cholesterol HDL >or= 60 mg/dL High HDL Cholesterol Performed By: #### L 100.0100, L501.9910, L500.4050, L500.4100 ####[facility] [address] [place], [address] Cholesterol in LDL [Mass/Vol] 135 mg/dL High 0-130 [facility] Comment on above: Performed By: #### L 100.0100, L501.9910, L500.4050, L500.4100 ####[facility] [address] [place], [address] Cholesterol in VLDL [Mass/Vol] 38 mg/dL Normal 5-40 [facility] Comment on above: Performed By: #### L 100.0100, L501.9910, L500.4050, L500.4100 ####[facility] [address] [place], [address] Triglyceride [Mass/Vol] 188 mg/dL Normal [facility] Comment on above: Result Comment: The drugs N-Acetylcysteine and Metamizole may falsely depress this assay. Serum Triglycerides Reference Interval Normal <150 mg/dL Borderline high 150 - 199 mg/dL High 200 - 499 mg/dL Very High > or = 500 mg/dL Performed By: #### L 100.0100, L501.9910, L500.4050, L500.4100 ####[facility] [address] [place], [address] PSA,Total - Annual Screenon 01-12-2024 PSA,TOT SCREEN 2.34 ng/mL Normal 0.00-4.00 [facility] Comment on above: Result Comment: This test was performed using the TPSA assay method for the [employer] chemistry system. Values obtained with different assay methods cannot be used interchangably. When changing PSA assays in the course of monitoring a patient, additional sequential testing should be carried out to confirm baseline values. Performed By: #### L 100.0100, L501.9910, L500.4050, L500.4100 ####[facility] [address] [place], [address] Absolute lymphocyte countOrd ered By: Chelle Cleary on 08-01-2022 Lymphocytes Auto (Unsp spec) [#/Vol] 1.27 10*3/uL 0.83-4.51 [facility] Basophil percentageOrdered B y: Chelle Cleary on 08-01-2022 Basophils/100 WBC (Bld) 0.8 % 0-1 [facility] Chloride [Moles/Vol] 106 mmol/L 98-107 [facility] Eosinophils/100 WBC (Bld) 3.4 % 0-5 [facility] Glucose [Mass/Vol] 120 mg/dL 74-106 [facility] Comment on above: Fasting Glucose resu lt from 100 to 125 mg/dL suggests IMPAIRED HOMEOSTASIS per A.D.A. criteria. Neutrophils (Bld) [#/Vol] 5.0 10*3/uL 2.0-7.7 [facility] Neutrophils/100 WBC (Bld) 67.6 % 47-70 [facility] Potassium [Moles/Vol] 5.1 mmol/L 3.5-5.1 [facility] Sodium [Moles/Vol] 139 mmol/L 136-145 [facility] WBC (Bld) [#/Vol] 7.4 10*3/uL 4.4-11.0 [facility] Blood erythrocytes count (nu mber/volume)Ordered By: Chelle Cleary on 08-01-2022 RBC (Bld) [#/Vol] 5.57 10*6/uL 4.6-6.2 [facility] Blood hemoglobin measurement (mass/volume)Ordered By: Chelle Cleary on 08-01-2022 Hemoglobin (Bld) [Mass/Vol] 16.6 g/dL 13.0-16.5 [facility] Blood lymphocytes/100 leukoc ytesOrdered By: Chelle Cleary on 08-01-2022 Lymphocytes/100 WBC (Bld) 17.2 % 19-41 [facility] Blood monocytes/100 leukocyt esOrdered By: Chelle Cleary on 08-01-2022 Monocytes/100 WBC (Bld) 10.2 % 0-10 [facility] Blood platelet mean volumeOr dered By: Chelle Cleary on 08-01-2022 Platelet mean volume (Bld) [Entitic vol] 9.7 fL 6.2-12.0 [facility] Determination of erythrocyte mean corpuscular volume (MCV)Ordered By: Chelle Cleary on 08-01-2022 MCV (RBC) [Entitic vol] 91.0 fL 80-94 [facility] Hematocrit Auto (Bld) [Volum e fraction]Ordered By: Chelle Cleary on 08-01-2022 Hematocrit (Bld) [Volume fraction] 50.7 % 40-54 [facility] - Chemistry and C hemistry - challengeOrdered By: Chelle Cleary on 08-01-2022 CO2 [Moles/Vol] 29.0 mmol/L 21.0-32.0 [facility] Urea nitrogen/Creatinine [Mass ratio] 25.8 mg/mg 10-20 [facility] - Hematology and Cell countsOrdered By: Chelle Cleary on 08-01-2022 Erythrocyte distribution width (RBC) [Entitic vol] 43.0 fL 35.1-43.9 [facility] Erythrocyte distribution width (RBC) [Ratio] 12.9 % 11.6-14.6 [facility] Immature granulocytes/100 WBC (Bld) 0.800 % 0.0-0.9 [facility] Comment on above: IG% - Immature Granu locytes (promyelocytes, myelocytes and metamyelocytes) > 1% indicates that a LEFT SHIFT is Present. MCH (RBC) [Entitic mass] 29.8 pg 27.0-32.0 [facility] Nucleated RBC/100 WBC (Bld) [Ratio] 0 % 0-5 [facility] MCHC Auto (RBC) [Mass/Vol]Or dered By: Chelle Cleary on 08-01-2022 MCHC (RBC) [Mass/Vol] 32.7 g/dL 32-36 [facility] No Panel InformationOrdered By: Chelle Cleary on 08-01-2022 Estimated GFR (MDRD) Amer 73 mL/min >60 [facility] Comment on above: GFR Calc Estimated GFR (MDRD) Non-Af Amer 60 mL/min >60 [facility] Comment on above: Non- GFR Calc Platelets bldOrdered By: Parker Cleary on 08-01-2022 Platelets (Bld) [#/Vol] 250 10*3/uL 150-450 [facility] Serum or plasma calcium silvana urement (mass/volume)Ordered By: Chelle Cleary on 08-01-2022 Calcium [Mass/Vol] 9.6 mg/dL 8.5-10.1 [facility] Serum or plasma creatinine m easurement (mass/volume)Ordered By: Chelle Cleary on 08-01-2022 Creatinine [Mass/Vol] 1.28 mg/dL 0.70-1.30 [facility] Comment on above: The validity of the calculated GFR & GFRAA in patients over 70 years has not been determined. Clinical correlation is essential. Serum or plasma urea nitroge n measurement (mass/volume)Ordered By: Chelle Cleary on 08-01-2022 Urea nitrogen [Mass/Vol] 33 mg/dL 7-18 [facility] Thin prep Papanicolaou smear with manual screeningOrdered By: Chelleshira Cleary on 08-01-2022 Thin prep Papanicolaou smear with manual screening 4 5-15 [facility] Absolute lymphocyte countOrd ered By: Dr. Das on 06-05-2022 Lymphocytes Auto (Unsp spec) [#/Vol] 1.25 10*3/uL 0.83-4.51 [facility] Basophil percentageOrdered B y: Dr. Das on 06-05-2022 Basophils/100 WBC (Bld) 1.3 % 0-1 [facility] Chloride [Moles/Vol] 107 mmol/L 98-107 [facility] Eosinophils/100 WBC (Bld) 3.7 % 0-5 [facility] Glucose [Mass/Vol] 127 mg/dL 74-106 [facility] Comment on above: Fasting Glucose resu lt greater than or equal to 126 mg/dL suggests DIABETES MELLITUS per A.D.A. criteria. Neutrophils (Bld) [#/Vol] 3.8 10*3/uL 2.0-7.7 [facility] Neutrophils/100 WBC (Bld) 64.1 % 47-70 [facility] Potassium [Moles/Vol] 3.9 mmol/L 3.5-5.1 [facility] Sodium [Moles/Vol] 137 mmol/L 136-145 [facility] WBC (Bld) [#/Vol] 6.0 10*3/uL 4.4-11.0 [facility] Blood erythrocytes count (nu mber/volume)Ordered By: Dr. Das on 06-05-2022 RBC (Bld) [#/Vol] 5.82 10*6/uL 4.6-6.2 [facility] Blood hemoglobin measurement (mass/volume)Ordered By: Dr. Das on 06-05-2022 Hemoglobin (Bld) [Mass/Vol] 17.1 g/dL 13.0-16.5 [facility] Blood lymphocytes/100 leukoc ytesOrdered By: Dr. Das on 06-05-2022 Lymphocytes/100 WBC (Bld) 20.9 % 19-41 [facility] Blood monocytes/100 leukocyt esOrdered By: Dr. Das on 06-05-2022 Monocytes/100 WBC (Bld) 9.5 % 0-10 [facility] Blood platelet mean volumeOr dered By: Dr. Das on 06-05-2022 Platelet mean volume (Bld) [Entitic vol] 9.2 fL 6.2-12.0 [facility] Determination of erythrocyte mean corpuscular volume (MCV)Ordered By: Dr. Das on 06-05-2022 MCV (RBC) [Entitic vol] 88.0 fL 80-94 [facility] Hematocrit Auto (Bld) [Volum e fraction]Ordered By: Dr. Das on 06-05-2022 Hematocrit (Bld) [Volume fraction] 51.2 % 40-54 [facility] - Chemistry and C hemistry - challengeOrdered By: Dr. Das on 06-05-2022 CO2 [Moles/Vol] 27.0 mmol/L 21.0-32.0 [facility] Urea nitrogen/Creatinine [Mass ratio] 19.1 mg/mg 10-20 [facility] - Hematology and Cell countsOrdered By: Dr. Das on 06-05-2022 Erythrocyte distribution width (RBC) [Entitic vol] 40.4 fL 35.1-43.9 [facility] Erythrocyte distribution width (RBC) [Ratio] 12.6 % 11.6-14.6 [facility] Immature granulocytes/100 WBC (Bld) 0.500 % 0.0-0.9 [facility] Comment on above: IG% - Immature Granu locytes (promyelocytes, myelocytes and metamyelocytes) > 1% indicates that a LEFT SHIFT is Present. MCH (RBC) [Entitic mass] 29.4 pg 27.0-32.0 [facility] - [place] Nucleated RBC/100 WBC (Bld) [Ratio] 0 % 0-5 [facility] MCHC Auto (RBC) [Mass/Vol]Or dered By: Dr. Das on 06-05-2022 MCHC (RBC) [Mass/Vol] 33.4 g/dL 32-36 [facility] No Panel InformationOrdered By: Dr. Das on 06-05-2022 Estimated Creatinine Clearance Calc 75.45 ml/min [facility] Estimated GFR (MDRD) Amer 82 mL/min >60 [facility] Comment on above: GFR Calc Estimated GFR (MDRD) Non-Af Amer 68 mL/min >60 [facility] Comment on above: Non- GFR Calc Troponin I High Sensitivity 7 pg/mL 3.0-78.0 [facility] Comment on above: Please Note: New Barbi t Units and Gender Specific Reference Ranges. For more information see Policy Stat Procedure [place] High Sensitivity Troponin (TNIH) and attachments. Platelets bldOrdered By: Dr. Das on 06-05-2022 Platelets (Bld) [#/Vol] 235 10*3/uL 150-450 [facility] Serum or plasma calcium silvana urement (mass/volume)Ordered By: Dr. Das on 06-05-2022 Calcium [Mass/Vol] 9.4 mg/dL 8.5-10.1 [facility] Serum or plasma creatinine m easurement (mass/volume)Ordered By: Dr. Das on 06-05-2022 Creatinine [Mass/Vol] 1.15 mg/dL 0.70-1.30 [facility] Comment on above: The validity of the calculated GFR & GFRAA in patients over 70 years has not been determined. Clinical correlation is essential. Serum or plasma urea nitroge n measurement (mass/volume)Ordered By: Dr. Das on 06-05-2022 Urea nitrogen [Mass/Vol] 22 mg/dL 7-18 [facility] Thin prep Papanicolaou smear with manual screeningOrdered By: Dr. Das on 06-05-2022 Thin prep Papanicolaou smear with manual screening 3 5-15 [facility] Absolute lymphocyte counton 11-19-2021 Lymphocytes Auto (Unsp spec) [#/Vol] 1.25 10*3/uL 0.83-4.51 [facility] Work Phone: Basophil percentageon 2021 Basophils/100 WBC (Bld) 0.6 % 0-1 [facility] Work Phone: Chloride [Moles/Vol] 104 mmol/L 98-107 [facility] Work Phone: Cholesterol [Mass/Vol] 185 mg/dL <200 [facility] Work Phone: Comment on above: <200 mg/dL Desirable 200-240 mg/dL Borderline >240 mg/dL High Risk Eosinophils/100 WBC (Bld) 2.9 % 0-5 [facility] Work Phone: Glucose [Mass/Vol] 136 mg/dL 74-106 [facility] Work Phone: Comment on above: Fasting Glucose resu lt greater than or equal to 126 mg/dL suggests DIABETES MELLITUS per A.D.A. criteria. Neutrophils (Bld) [#/Vol] 4.5 10*3/uL 2.0-7.7 [facility] Work Phone: Neutrophils/100 WBC (Bld) 68.2 % 47-70 [facility] Work Phone: Potassium [Moles/Vol] 4.4 mmol/L 3.5-5.1 [facility] Work Phone: Sodium [Moles/Vol] 138 mmol/L 136-145 [facility] Work Phone: Triglyceride [Mass/Vol] 109 mg/dL <199 [facility] Work Phone: Comment on above: The drugs N-Acetylcy steine and Metamizole may falsely depress this assay.Serum Triglycerides Reference Interval Normal <150 mg/dL Borderline high 150 - 199 mg/dL High 200 - 499 mg/dL Very High > or = 500 mg/dL WBC (Bld) [#/Vol] 6.6 10*3/uL 4.4-11.0 [facility] Work Phone: Blood erythrocytes count (nu mber/volume)on 11-19-2021 RBC (Bld) [#/Vol] 5.70 10*6/uL 4.6-6.2 [facility] Work Phone: Blood hemoglobin measurement (mass/volume)on 11-19-2021 Hemoglobin (Bld) [Mass/Vol] 17.0 g/dL 13.0-16.5 [facility] Work Phone: [phone] Blood lymphocytes/100 leukoc yteson 11-19-2021 Lymphocytes/100 WBC (Bld) 18.9 % 19-41 [facility] Work Phone: [phone] Blood monocytes/100 leukocyt eson 11-19-2021 Monocytes/100 WBC (Bld) 8.8 % 0-10 [facility] Work Phone: Blood platelet mean volumeon 11-19-2021 Platelet mean volume (Bld) [Entitic vol] 9.6 fL 6.2-12.0 [facility] Work Phone: Determination of erythrocyte mean corpuscular volume (MCV)on 11-19-2021 MCV (RBC) [Entitic vol] 89.3 fL 80-94 [facility] Work Phone: [phone] Hematocrit Auto (Bld) [Volum e fraction]on 11-19-2021 Hematocrit (Bld) [Volume fraction] 50.9 % 40-54 [facility] Work Phone: Laboratory - Chemistry and C hemistry - challengeon 11-19-2021 CO2 [Moles/Vol] 29.0 mmol/L 21.0-32.0 [facility] Work Phone: Urea nitrogen/Creatinine [Mass ratio] 24.8 mg/mg 10-20 [facility] Work Phone: [phone] Laboratory - Hematology and Cell countson 11-19-2021 Erythrocyte distribution width (RBC) [Entitic vol] 41.6 fL 35.1-43.9 [facility] Work Phone: [phone] Erythrocyte distribution width (RBC) [Ratio] 12.8 % 11.6-14.6 [facility] Work Phone: [phone] Immature granulocytes/100 WBC (Bld) 0.600 % 0.0-0.9 [facility] Work Phone: [phone] Comment on above: IG% - Immature Granu locytes (promyelocytes, myelocytes and metamyelocytes) > 1% indicates that a LEFT SHIFT is Present. MCH (RBC) [Entitic mass] 29.8 pg 27.0-32.0 [facility] Work Phone: [phone] Nucleated RBC/100 WBC (Bld) [Ratio] 0 % 0-5 [facility] Work Phone: [phone] MCHC Auto (RBC) [Mass/Vol]on 11-19-2021 MCHC (RBC) [Mass/Vol] 33.4 g/dL 32-36 [facility] Work Phone: [phone] No Panel Informationon 11-19 Estimated GFR (MDRD) Amer 81 mL/min >60 [facility] Work Phone: [phone] Comment on above: GFR Calc Estimated GFR (MDRD) Non-Af Amer 67 mL/min >60 [facility] Work Phone: [phone] Comment on above: Non- GFR Calc Thyroid Stimulating Hormone (TSH) 1.90 uIU/mL 0.358-3.74 [facility] Work Phone: Platelets bldon 11-19-2021 Platelets (Bld) [#/Vol] 216 10*3/uL 150-450 [facility] Work Phone: [phone] Serum or plasma calcium silvana urement (mass/volume)on 11-19-2021 Calcium [Mass/Vol] 9.1 mg/dL 8.5-10.1 [facility] Work Phone: [phone] Serum or plasma cholesterol in HDL measurement (mass/volume)on 11-19-2021 Cholesterol in HDL [Mass/Vol] 48 mg/dL >40 [facility] Work Phone: Comment on above: The drugs N-Acetylcy steine and Metamizole may falsely depress this assay. Reference Range HDL <40 mg/dL Low HDL Cholesterol HDL >or= 60 mg/dL High HDL Cholesterol Serum or plasma cholesterol in VLDL measurement (mass/volume)on 11-19-2021 Cholesterol in VLDL [Mass/Vol] 22 mg/dL 5-40 [facility] Work Phone: Serum or plasma creatinine m easurement (mass/volume)on 11-19-2021 Creatinine [Mass/Vol] 1.17 mg/dL 0.70-1.30 [facility] Work Phone: Comment on above: The validity of the calculated GFR & GFRAA in patients over 70 years has not been determined. Clinical correlation is essential. Serum or plasma low density lipoprotein (LDL) cholesterol measurement (mass/volume)on 11-19-2021 Cholesterol in LDL [Mass/Vol] 115 mg/dL 0-130 [facility] Work Phone: Serum or plasma urea nitroge n measurement (mass/volume)on 11-19-2021 Urea nitrogen [Mass/Vol] 29 mg/dL 7-18 [facility] Work Phone: Thin prep Papanicolaou smear with manual screeningon 11-19-2021 Thin prep Papanicolaou smear with manual screening 5 5-15 [facility] Work Phone: CBC AND DIFFERENTIALon 08-28 Basophils (Bld) [#/Vol] 0.10 10*3/uL Normal 0.00 - 0.10 [facility] Comment on above: Performed By: #### C BCDF #### [address] [address] Basophils/100 WBC (Bld) 1.1 % Normal 0.0 - 2.0 [facility] Comment on above: Performed By: #### C BCDF #### [address] [address] Eosinophils (Bld) [#/Vol] 0.20 10*3/uL Normal 0.00 - 0.70 [facility] Comment on above: Performed By: #### C BCDF #### [address] [address] Eosinophils/100 WBC (Bld) 3.6 % Normal 0.0 - 6.0 [facility] Comment on above: Performed By: #### C BCDF #### [address] [address] Erythrocyte distribution width (RBC) [Ratio] 13.7 % Normal 11.5 - 14.5 [facility] Comment on above: Performed By: #### C BCDF #### [address] [address] Hematocrit (Bld) [Volume fraction] 48.1 % Normal 41.0 - 52.0 [facility] Comment on above: Performed By: #### C BCDF #### [address] [address] Hemoglobin (Bld) [Mass/Vol] 16.1 g/dL Normal 13.5 - 17.5 [facility] Comment on above: Performed By: #### C BCDF #### [address] [address] Lymphocytes (Bld) [#/Vol] 1.30 10*3/uL Normal 1.20 - 4.80 [facility] Comment on above: Performed By: #### C BCDF #### [address] [address] Lymphocytes/100 WBC (Bld) 25.6 % Normal 13.0 - 44.0 [facility] Comment on above: Performed By: #### C BCDF #### [address] [address] MCHC (RBC) [Mass/Vol] 33.6 g/dL Normal 32.0 - 36.0 [facility] Comment on above: Performed By: #### C BCDF #### [address] [address] MCV (RBC) [Entitic vol] 90 fL Normal 80 - 100 [facility] Comment on above: Performed By: #### C BCDF #### [address] [address] Monocytes (Bld) [#/Vol] 0.40 10*3/uL Normal 0.10 - 1.00 [facility] Comment on above: Performed By: #### C BCDF #### [address] [address] Monocytes/100 WBC (Bld) 7.3 % Normal 2.0 - 10.0 [facility] Comment on above: Performed By: #### C BCDF #### [address] [address] Neutrophils (Bld) [#/Vol] 3.10 10*3/uL Normal 1.20 - 7.70 [facility] Comment on above: Result Comment: Perc ent differential counts (%) should be interpreted in the context of the absolute cell counts (cells/L). Performed By: #### C BCDF #### [address] [address] Neutrophils/100 WBC (Bld) 62.4 % Normal 40.0 - 80.0 [facility] Comment on above: Performed By: #### C BCDF #### [address] [address] NUCLEATED RBC 0.1 /100 WBC Normal [facility] Comment on above: Performed By: #### C BCDF #### [address] [address] Platelets (Bld) [#/Vol] 201 10*3/uL Normal 150 - 450 [facility] Comment on above: Performed By: #### C BCDF #### [address] [address] RBC 5.35 x10E12/L Normal 4.50 - 5.90 [facility] Comment on above: Performed By: #### C BCDF #### [address] [address] WBC (Bld) [#/Vol] 5.0 10*3/uL Normal 4.4 - 11.3 [facility] Comment on above: Performed By: #### C BCDF #### [address] [address] COMPREHENSIVE PANELon 2020 Albumin [Mass/Vol] 4.3 g/dL Normal 3.4 - 5.0 [facility] Comment on above: Performed By: #### C MP #### [address] [address] ALP [Catalytic activity/Vol] 49 U/L Normal 33 - 136 [facility] Comment on above: Performed By: #### C MP #### [address] [address] ALT [Catalytic activity/Vol] 16 U/L Normal 10 - 52 [facility] Comment on above: Result Comment: Earnestine ents treated with Sulfasalazine may generate falsely decreased results for ALT. Performed By: #### C MP #### [address] [address] Anion gap [Moles/Vol] 9 mmol/L Low 10 - [address] [facility] Comment on above: Performed By: #### C MP #### [address] [address] AST [Catalytic activity/Vol] 20 U/L Normal 9 - 39 [facility] Comment on above: Performed By: #### C MP #### [address] [address] Bilirubin [Mass/Vol] 0.8 mg/dL Normal 0.0 - 1.2 [facility] Comment on above: Performed By: #### C MP #### [address] [address] Calcium [Mass/Vol] 8.9 mg/dL Normal 8.6 - 10.3 [facility] Comment on above: Performed By: #### C MP #### [address] [address] Chloride [Moles/Vol] 106 mmol/L Normal 98 - 107 [facility] Comment on above: Performed By: #### C MP #### [address] [address] Creatinine [Mass/Vol] 1.18 mg/dL Normal 0.50 - 1.30 [facility] Comment on above: Performed By: #### C MP #### [address] [address] GFR- AM. >60 Normal >60 [facility] Comment on above: Result Comment: CALC ULATIONS OF ESTIMATED GFR ARE PERFORMED USING THE MDRD STUDY EQUATION FOR THE IDMS-TRACEABLE CREATININE METHODS. CLIN CHEM 2007;53:766-72 Performed By: #### C MP #### [address] [address] GFR-NON AM. >60 Normal >60 [facility] Comment on above: Performed By: #### C MP #### [address] [address] Glucose [Mass/Vol] 113 mg/dL High 74 - 99 [facility] Comment on above: Performed By: #### C MP #### [address] [address] HCO3 (Bld) [Moles/Vol] 28 mmol/L Normal 21 - 32 [facility] Comment on above: Performed By: #### C MP #### [address] [address] Potassium [Moles/Vol] 4.3 mmol/L Normal 3.5 - 5.[address] [facility] Comment on above: Performed By: #### C MP #### [address] [address] Protein [Mass/Vol] 6.9 g/dL Normal 6.4 - 8.2 [facility] Comment on above: Performed By: #### C MP #### [address] [address] Sodium [Moles/Vol] 139 mmol/L Normal 136 - 145 [facility] Comment on above: Performed By: #### C MP #### [address] [address] Urea nitrogen [Mass/Vol] 27 mg/dL High - [facility] Comment on above: Performed By: #### C MP #### [address] [address] LIPID PANEL (CORONARY RISK 2 )on 08-28-2020 Cholesterol [Mass/Vol] 163 mg/dL Normal 0 - 199 [facility] Comment on above: Result Comment: . AGE DESIRABLE BORDERLINE HIGH HIGH 0-19 Y 0 - 169 170 - 199 >/= 200 20-24 Y 0 - 189 190 - 224 >/= 225 >24 Y 0 - 199 200 - 239 >/= 240 All ranges are based on fasting samples. Specific therapeutic targets will vary based on patient-specific cardiac risk. . Pediatric guidelines reference:Pediatrics 2011, 128(S5). Adult guidelines reference: NCEP ATPIII Guidelines, MJ 2001, 258:5606-97 . Venipuncture immediately after or during the administration of Metamizole may lead to falsely low results. Testing should be performed immediately prior to Metamizole dosing. Performed By: #### L IPID #### [address] [address] Cholesterol in HDL [Mass/Vol] 39.0 mg/dL Abnormal [facility] Comment on above: Result Comment: . AGE VERY LOW LOW NORMAL HIGH 0-19 Y < 35 < 40 40-45 ---- 20-24 Y ---- < 40 >45 ---- >24 Y ---- < 40 40-60 >60 . Performed By: #### L IPID #### [address] [address] Cholesterol in LDL [Mass/Vol] 103 mg/dL High 0 - 99 [facility] Comment on above: Result Comment: . NEAR BORD AGE DESIRABLE OPTIMAL HIGH HIGH VERY HIGH 0-19 Y 0 - 109 --- 110-129 >/= 130 ---- 20-24 Y 0 - 119 --- 120-159 >/= 160 ---- >24 Y 0 - 99 100-129 130-159 160-189 >/=190 . Performed By: #### L IPID #### [address] [address] Cholesterol in VLDL [Mass/Vol] 21 mg/dL Normal 0 - 40 [facility] Comment on above: Performed By: #### L IPID #### [address] [address] Cholesterol.total/Chol esterol in HDL [Mass ratio] 4.2 {ratio} Normal [facility] Comment on above: Result Comment: REF VALUES DESIRABLE < 3.4 HIGH RISK > 5.0 Performed By: #### L IPID #### [address] [address] Triglyceride [Mass/Vol] 106 mg/dL Normal 0 - 149 [facility] Comment on above: Result Comment: . AGE DESIRABLE BORDERLINE HIGH HIGH VERY HIGH 0 D-90 D 19 - 174 ---- ---- ---- 91 D- 9 Y 0 - 74 75 - 99 >/= 100 ---- 10-19 Y 0 - 89 90 - 129 >/= 130 ---- 20-24 Y 0 - 114 115 - 149 >/= 150 ---- >24 Y 0 - 149 150 - 199 200- 499 >/= 500 . Venipuncture immediately after or during the administration of Metamizole may lead to falsely low results. Testing should be performed immediately prior to Metamizole dosing. Performed By: #### L IPID #### [address] [address] THYROXINE,FREEon 08-28-2020 THYROXINE,FREE 0.76 ng/dL Normal 0.61 - 1.12 [facility] Comment on above: Result Comment: Thyr oxine Free testing is performed using different testing methodology at [facility] than [facility]. Direct result comparisons should only be made within the same method. . Biotin can cause falsely elevated free T4 results. Patients taking a Biotin dose of up to 10 mg/day should refrain from taking Biotin for 24 hours before sample collection. Patient taking a Biotin dose of >10 mg/day should consult with their physician or the laboratory before the blood draw. Performed By: #### T 4FRE #### [address] [address] TSHon 08-28-2020 TSH Qn 2.45 m[IU]/L Normal 0.44 - 3.98 [facility] Comment on above: Result Comment: TSH testing is performed using different testing methodology at [facility] than [facility] other [facility]. Direct result comparisons should only be made within the same method. Performed By: #### T SH2 #### [facility] [address] [place] [address] Vital Signs Date Time Vital Sign Value Performing Clinician Faci lity 06-05-2022 13:42-0400 Diastolic blood pressure 95 mm[Hg] [facility] 06-05-2022 13:42-0400 Systolic blood pressure 127 mm[Hg] [facility] 06-05-2022 13:32-0400 Heart rate 56 /min [facility] 06-05-2022 13:32-0400 Respiratory rate 15 /min [facility] 06-05-2022 13:32-0400 SaO2% (BldA) [Mass fraction] 97 % [facility] 06-05-2022 12:38-0400 Body height 187.96 cm [facility] 06-05-2022 12:38-0400 Body mass index (BMI) [Ratio] 38.2 kg/m2 [facility] 06-05-2022 12:38-0400 Body temperature 97.1 [degF] [facility] 06-05-2022 12:38-0400 Body weight 135.12 kg [facility] Encounters Encounter Date Encounter Type Care Provider Facility Start: 12-18-2024 End: 12-18-2024 ambulatory Chelle Cleary Facility:[facility] Start: 12-17-2024 ambulatory Cristian Arroyo Facility: [facility] Start: 12-04-2024 End: 12-06-2024 ambulatory Cristian Arroyo Facility:[facility] Start: 11-29-2024 End: 11-29-2024 ambulatory Cristian Arroyo Facility:[facility] Start: 11-14-2024 End: 11-14-2024 ambulatory Chelle Cleary Facility:[facility] Start: 10-15-2024 End: 10-15-2024 ambulatory Chelle Cleary [employer] Work Phone: [facility] Start: 10-15-2024 End: 10-15-2024 Patient encounter procedure Chelle Cleary [employer] -Radiology [place] Work Phone: Start: 10-15-2024 End: 10-15-2024 ambulatory Chelle Cleary Facility:[facility] Start: 07-31-2024 End: 07-31-2024 ambulatory Chelle Cleary [employer] Work Phone: -[facility] Start: 07-31-2024 End: 07-31-2024 Patient encounter procedure Chelle Cleary [employer] -[facility] Start: 07-31-2024 End: 07-31-2024 ambulatory Chelle Cleary Facility:[facility] Start: 01-12-2024 End: 01-12-2024 ambulatory Chelle Cleary Facility:[facility] Start: 08-01-2022 End: 08-01-2022 ambulatory [facility] Work Phone: Start: 08-01-2022 End: 08-01-2022 Patient encounter procedure [facility], [facility] Start: 06-05-2022 End: 06-05-2022 Emergency department patient visit [facility] Start: 11-19-2021 End: 11-19-2021 ambulatory [facility] Work Phone: Start: 11-19-2021 End: 11-19-2021 Patient encounter procedure [facility], [facility] Procedures Date Procedure Procedure Detail Performing Clinician Start: 10-15-2024 Radiologic exam knee complete 4/more views Chelle Cleary [employer] Work Phone: Start: 07-31-2024 Serum fructosamine measurement Chelle Cleary [employer] Work Phone: Comment on above: Published reference interval for apparently healthysubjects between age 20 and 60 is 205 - 285 umol/L and in apoorly controlled diabetic population is 228 - 563 umol/Lwith a mean of 396 umol/L.Performed at: [place] [id number] Director: Ricky Cooney PhD, Phone: [phone] Start: 06-05-2022 Plain chest X-ray Plan of Treatment Date Care Activity Detail Author Patient Education ED Hypertension, Establ ished [facility] Work Phone: Patient referral [facility] Work Phone: Payers Date Payer Category Payer Medicare [id number] 2024 Unknown [id number] 2024 Self-pay [id number] 2014 Unknown [id number] Unknown [id number] 2.16.8 [id number] Unknown [id number] 2.16.8 [id number] Unknown [id number] 2.16.8 [id number] Unknown [id number] 2.16.8 [id number] Unknown [id number] 2.16.8 [id number] Unknown [id number] 2.16.8 [id number] Unknown [id number] 2.16.8 [id number] Unknown [id number] 2.16.8 [id number] Social History Date Type Detail Facility Start: 05-17-2018 End: 06-05-2022 Tobacco smoking status NHIS Unknown if ever smoked [facility] Start: 05-16-2018 None [facility] Start: 05-16-2018 Spouse/ Signif icant Other [facility] Start: 05-17-2018 Non-smoker [facility] Start: 1960 Sex Assigned At Male [facility] Start: 06-05-2022 Tobacco smoking status NHIS Never smoked tobacco (finding) [facility] Sex Male [facility] Mental Status Date Assessment Result Facility 06-05-2022 Cognitive function Level Of Cons ciousness Awake;Alert;Appropriate;Follow s Commands [facility] Work Phone: Radiology Diagnostic study note 10-16-2024 Note Date & Type Note Facility 10-16-2024 Radiology Diagnostic study note [facility] Imaging Services [address] [place] [address] Knee 4 or More Views MR#: [id number] Acct: [id number] Name: KESHA IVAN Rep #: [id number] : [id number] M 64 From: Franki Frye MD PCP: SELMA Knight Status: REG CLI Study:Knee 4 or More Views Date of Exam: 10/15/24 Exam# [id number] Ordering Dr: Ra abbey Cleary PROCEDURE: KNEE 4 OR MORE VIEWS 10/15/2024 REASON FOR EXAM: PAIN IN KNEE TECHNIQUE: Procedure Code: RADKN Modality: DX Procedure: KNEE 4 OR MORE VIEWS Laterality: FINDINGS: No evidence of acute fracture or dislocation. Left knee arthroplasty. Left knee joint effusion. RAD/Knee 4 or More Views IMPRESSION: Intact left knee arthroplasty. Joint effusion. 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 We will add losartan to your blood pressure regimen. [facility] Work Phone: Reason for referral (narrative) Note Date & Type Note Facility Reason for referral (narrative) No reason for referral information available [facility] Work Phone: Summary Purpose Family History No Family History Records Found Relationship Condition Age at Onset Recorded Date/T guero Unknown Family History?Hypertension Unknown May 16, 2018 4:13pm Family History?Hypertension Unknown May 16, 2018 4:13pm Advance Directives No Advanced Directives Records Found Advance Directive Response Recorded Date/ Time Living Will No May 16, 2018 3:15pm Power of Manager Media Relations No May 16 3:15pm Advance Directive Response Recorded Date/ Time Living Will No June 05, 2022 12:37pm Power of Manager Media Relations No June 05 12:37pm Chief Complaint and Reason for Visit Chief Complaint hypertension Chief Complaint Admit Date PAIN IN LEFT KNEE October 15, 2024 4:21pm Additional Source Comments (unrecognized sect ion and content) No Status Records FoundNo Status Records Found INFORMATION SOURCE (unrecogn ized section and content) DATE CREATED AUTHOR 08/30/2020 [facility] DATE CREATED AUTHOR AUTHOR'S ORGANIZ ATION 12/18/2024 [facility] Goals (unrecognized section and content) Goals may be documented in a n alternate sectionGoals may be documented in an alternate sectionGoals may be documented in an alternate sectionGoals may be documented in an alternate sectionGoals may be documented in an alternate section Care Teams (unrecognized sec tion and content) Team Status: Active Member Role Status Dates Dr. Ricardo West MD Family Provider Active No Primary Care Physician Primary Care Provider Active Team Status: Inactive Member Role Status Dates Dr. Altagracia Das MD Referring Provider, Emergency Provider Active No Primary Care Physician Primary Care Provider Active Team Status: Active Member Role Status Dates Dr. Ricardo West MD Family Provider Active SELMA Knight Primary Care Provider Active Team Status: Inactive Member Role Status Dates Dr. Altagracia Das MD Attending Provid er, Referring Provider, Emergency Provider Active No Primary Care Physician Primary Care Provider Active Team Status: Inactive Member Role Status Dates SELMA Knight Primary Care Provide r, Attending Provider, Referring Provider Active Team Status: Active Member Role/Relationship Status Dates Dr. Ricardo West MD Family Provider Active SELMA Knight Primary Care Provider Active Team Status: Inactive Member Role/Relationship Status Dates SELMA Knight Primary Care Provider Active Start: July 31, 2024 End: July 31, 2024 SELMA Knight Attending Provider Active St art: July 31, 2024 End: July 31, 2024 Team Status: Active Member Role/Relationship Status Dates Dr. Ricardo West MD Primary care physician Active SELMA Knight Primary care physician Active Team Status: Inactive Member Role/Relationship Status Dates SELMA Knight Primary care physician Active Start: July 31, 2024 End: July 31, 2024 SELMA Knight Attending physician Active S tart: July 31, 2024 End: July 31, 2024 Team Status: Inactive Member Role/Relationship Status Dates SELMA Knight Primary care physician Active Start: October 15, 2024 End: October 15, 2024 SELMA Knight Attending physician Active S tart: October 15, 2024 End: October 15, 2024 SELMA Knight Referring Provider Active St art: October 15, 2024 End: October 15, 2024 FOR RECORDS PERTAINING TO PATIENTS WHO ARE OR HAVE BEEN ENROLLED IN A CHEMICAL DEPENDENCY/SUBSTANCEABUSE PROGRAM, SOME INFORMATION MAY BE OMITTED. This clinical summary was aggregated from multiple sources. Caution should be exercised in using it in the provision of clinical care. This summary normalizes information from multiple sources, and as a consequence, information in this document may materially change the coding, format and clinical context of patient data. In addition, data may be omitted in some cases. CLINICAL DECISIONS SHOULD BE BASED ON THE PRIMARY CLINICAL RECORDS. [facility] [employer] provides no warranty or guarantee of the accuracy or completeness of information in this document.
[2024-12-31 09:57] LABS: Hematocrit 47.2 % (40-54); Hemoglobin 15.9 g/dL (13.0-16.5); Immature Granulocytes Count 0.030 X10^3/uL (0.0-0.0); Mean Corp Hgb Conc 33.7 g/dL (32-36); Mean Corpuscular Volume 86.6 fL (80-94); Mean Platelet Vol. 9.4 fl (6.2-12.0); NRBC Flagged by Analyzer 0 % (0-5); Platelet Count 196 K/mm3 (150-450); RBC Distribution Width CV 12.7 % (11.6-14.6); RBC Distribution Width SD 40.4 fl (35.1-43.9); Red Blood Count 5.45 M/mm3 (4.6-6.2); White Blood Count 6.7 K/mm3 (4.4-11.0)
[2024-12-31 10:33] LABS: AST(SGOT) 18 U/L (<=37); Alanine Aminotransfer ALT/SGPT 16 U/L (<=46); Albumin, Serum 4.2 g/dL (3.4-4.8); Alkaline Phosphatase 71 U/L (40-129); Anion Gap 11 (5-15); BUN 29 mg/dL (4-19); BUN/Creat Ratio 28.5 RATIO (10-20); Calcium,Total 9.6 mg/dL (7.6-11.0); Carbon Dioxide 26.4 mmol/L (21.0-32.0); Chloride 103 mmol/L (98-108); Cholesterol 185 mg/dL (<=200); Globulin 2.7 g/dL (2.2-4.2); Glucose 145 mg/dL (70-99); Low Density Lipoprotein Calc. 117 mg/dL; Potassium 4.0 mmol/L (3.3-5.1); Triglycerides 133 mg/dL; Very Low Density Lipoprotein 27 mg/dL (5-40); cholesterol:hdl ratio screen 4.17
== END | disposition home or self-care (01) ==
LOC: MTLAB 08:01
PROVIDERS: PCP Nurse Practitioner Family; Referring Provider Nurse Practitioner Family; Visit Provider Nurse Practitioner Family
DX: I10 Essential (primary) hypertension (principal); E11.9 Type 2 diabetes mellitus without complications; E78.5 Hyperlipidemia, unspecified; Z12.5 Encounter for screening for malignant neoplasm of prostate
CPT/HCPCS: 36415; 80053; 80061; 83036; 85025